=== PATIENT | male | born 1960 | race Caucasian/White ===

== ENCOUNTER 2021-01-14 07:08 | Outpatient (CLI) | payer BC, OTHER, SELFPAY ==
[2021-01-14 08:26] LABS: Hematocrit 42.1 % (42.0-52.0); Hemoglobin 13.6 g/dL (14.0-18.0); Mean Corpuscular HGB Conc 32.3 g/dl (32-36); Mean Corpuscular Hemoglobin 33.1 pg (26-34); Mean Corpuscular Volume 102.4 fl (80-100); Mean Platelet Volume 9.1 fl (7.4-10.4); Platelet Count Result 447 k/mm3 (150-375); Red Blood Count 4.11 M/mm3 (4.6-6.20); Red Cell Distribution Width 13.2 % (11.5-14.5); White Blood Count 17.6 K/mm3 (4.5-10.0)
[2021-01-14 08:51] LABS: Add Urine Microscopic? YES; Appearance Urine Clear (Clear); Bilirubin Urine Negative (Negative); Blood Urine Negative (Negative); Color Urine Yellow (Yellow); Glucose Urine UA Negative (Negative); Ketones Urine Negative (Negative); Leukocyte Esterase Ur Negative LEU/UL (Negative); Mucus Urine Rare /lpf; Nitrate Urine Negative (Negative); Protein Urine 1+ mg/dL (Negative); RBC Urine 0-2 /hpf (0-2); Specific Grav Ur 1.023 (1.001-1.035); Squamous Epithelial Cell Urine Few /hpf (Few); WBC Urine 0-3 /hpf
[2021-01-14 09:06] LABS: Vitamin D 25 Hydroxy 16.2 ng/mL
[2021-01-14 10:24] LABS: Alanine Aminotransferase 22 U/L (4-50); Albumin Level 3.8 g/dL (3.5-5.1); Alkaline Phosphatase 93 U/L (38-126); Anion Gap 11 mmol/L (8-16); Aspartate Amino Transferase 27 U/L (17-59); Bilirubin,Total 1.4 mg/dL (0.2-1.3); Blood Urea Nitrogen 12 mg/dL (9-20); Calcium 9.5 mg/dL (8.4-10.2); Carbon Dioxide 24 mmol/L (22-30); Chloride 102 mmol/L (98-107); Cholesterol 144 mg/dL (0-200); Estimated Glomerular Filt Rate > 60; Glucose 102 mg/dL (65-110); HDL Direct 58 mg/dL; Magnesium 1.8 mg/dL (1.6-2.3); Potassium 4.8 mmol/L (3.4-5.0); Sodium 137 mmol/L (137-145); Triglycerides 50 mg/dL (<150)
[2021-01-14 10:44] LABS: LDL Cholesterol Direct 73 mg/dL
[2021-01-16 18:18] LABS: Hemoglobin A1C 5.5 % (<5.7)
[2021-01-16 20:10] LABS: Prostate Specific Antigen 0.8 ng/mL (< OR = 4.0)
[2021-01-16 20:49] LABS: Folic Acid 4.6 ng/mL (2.76->20)
== END 2021-01-14 07:09 | disposition home or self-care (01) ==
PROVIDERS: PCP Family Medicine; Visit Provider Family Medicine
DX: Z00.00 Encounter for general adult medical examination without abnormal findings (principal); R14.0 Abdominal distension (gaseous); R63.4 Abnormal weight loss
CPT/HCPCS: 36415; 80053; 80061; 81001; 82306; 82607; 82746; 83036; 83735; 84153; 84443; 85027

== ENCOUNTER → 2021-01-23 15:52 | Outpatient (CLI) | payer BC, SELFPAY ==
--- NOTE | ~2021-01-23 | CT_ITS ---
EXAMINATION:CT lung screening DATE: 01/23/2021 16:07 INDICATION: Personal history of tobacco dependence. Current smoker with 45 pack year history. TECHNIQUE: Computed tomography (CT) of the chest was performed without intravenous contrast. Automate d exposure control and iterative reconstruction technique were employed. The dose-length product (DLP ) was 157.14 mGy-cm. COMPARISON: None. FINDINGS: There is mild emphysema. Calcified bilateral lung nodules and calcified mediastinal lymph n odes are consistent with old granulomatous disease. There is a small loculated right pleural effusion . There are peripheral airspace opacities in right lung lower lobe. There is an ill-defined 4 x 3 cm mass with cavitation in right lower lobe. The heart size is normal. There are coronary artery calcifi cations. No pericardial effusion. There are mildly enlarged noncalcified right hilar and mediastinal lymph nodes. For example, a right paratracheal node measures 14 x 12 mm. There are 3 subcutaneous mas ses in the posterior thorax measuring up to 4.1 cm, likely sebaceous cysts. There is an old healed le ft rib fracture. There is mild thoracic spondylosis. There is mild chronic height loss of multiple ve rtebral bodies. IMPRESSION: 1. Lung-RADS category 4B: Very suspicious. Ultrasound-guided right-sided thoracentesis is recommended . Reviewed, dictated and finalized at location A. IMPRESSION: 1. Lung-RADS category 4B: Very suspicious. Ultrasound-guided right-sided thorac entesis is recommended.
== END ==
PROVIDERS: PCP Family Medicine; Visit Provider Family Medicine
DX: Z12.2 Encounter for screening for malignant neoplasm of respiratory organs (principal); Z87.891 Personal history of nicotine dependence; R91.8 Other nonspecific abnormal finding of lung field
CPT/HCPCS: 71271

== ENCOUNTER 2021-02-09 08:31 | Outpatient (CLI) | payer BC, OTHER, SELFPAY ==
[2021-02-08 09:33] VITALS: BMI 25.0
[2021-02-09] VITALS (9 sets, daily range): BP systolic 133–158; BP diastolic 73–90; PULSE 65–84; RESP 12–20; O2SAT 97–98
--- NOTE | ~2021-02-09 | XR_ITS ---
EXAMINATION: [id number] DATE: 02/09/2021 10:28 INDICATION: Right pleural effusion status post thoracentesis. TECHNIQUE: A single frontal view of the chest was obtained. COMPARISON: Chest CT 01/23/2021 FINDINGS: Calcified left lung nodules are consistent with old granulomatous disease. There is a small right pleural effusion. There are airspace opacities in right lower lung zone. No pneumothorax. The heart size is normal. IMPRESSION: 1. Small right pleural effusion. 2. Airspace opacities in right lower lung zone, consistent with atelectasis versus pneumonia. Reviewed, dictated and finalized at location A. IMPRESSION: 1. Small right pleural effusion. 2. Airspace opacities in right lower lung zone, consistent with atelectasis buddy samy pneumonia.
--- NOTE | ~2021-02-09 | US_ITS ---
EXAMINATION: US thoracentesis DATE: 02/09/2021 10:40 INDICATION: pleural effusion TECHNIQUE: The procedure and its risks, benefits, and alternatives were discussed with the patient. P otential risks discussed included bleeding, infection, and pneumothorax. The patient understood the r isks and agreed to proceed. The skin was prepped and draped in sterile fashion. 1% lidocaine was used for local anesthesia. Under ultrasound guidance, a 5 Fr catheter with trochar was advanced into the right pleural effusion. Fluid was aspirated. The catheter was removed, and a dressing was applied. Th ere were no immediate complications. FINDINGS: Ultrasound images demonstrate a right pleural effusion and the catheter within the fluid. IMPRESSION: 1. Successful ultrasound-guided thoracentesis yielding 50 mL of opaque, garcia fluid. Reviewed, dictated and finalized at location A. IMPRESSION: 1. Successful ultrasound-guided thoracentesis yielding 50 mL of opaque, garcia fl uid.
[2021-02-09 08:58] LABS: Basophils Absolute Auto 0.1 K/mm3 (0.0-0.1); Basophils Percent Auto 0.3 % (0.2-1.2); Eosinophils Absolute Auto 0.2 K/mm3 (0-0.3); Eosinophils Percent Auto 1.1 % (0-4.4); Hematocrit 36.3 % (42.0-52.0); Hemoglobin 11.5 g/dL (14.0-18.0); Immature Granulocyte Absolute 0.15 K/mm3 (0.00-0.031); Lymphocytes Absolute Auto 2.59 K/mm3 (0.9-3.2); Lymphocytes Percent Auto 16.7 % (18.3-44.2); Mean Corpuscular HGB Conc 31.7 g/dl (32-36); Mean Corpuscular Hemoglobin 32.7 pg (26-34); Mean Corpuscular Volume 103.1 fl (80-100); Mean Platelet Volume 8.7 fl (7.4-10.4); Monocytes Absolute Auto 1.5 K/mm3 (0.1-0.6); Monocytes Percent Auto 9.7 % (2.6-8.5); Neutrophils Percent Auto 71.2 % (45.5-73.1); Platelet Count Result 672 k/mm3 (150-375); Red Blood Count 3.52 M/mm3 (4.6-6.20); Red Cell Distribution Width 14.3 % (11.5-14.5); White Blood Count 15.5 K/mm3 (4.5-10.0)
[2021-02-09 09:29] LABS: Prothrombin Time 13.2 Seconds (11.1-14.7)
--- NOTE | 2021-02-09 12:23 | SUR.PHASEII ---
1126 - lab called and stated that pleural fluid PH level is 7.210. dr holman aware. no orders received 1210 - dr. holman called and okayed for pt to discharge home
[2021-02-09 20:53] LABS: Appearance Pleural Fluid Turbid (Clear); Color Pleural Fluid White (Colorless); Pleural fluid source Pleural fluid
[2021-02-13 14:10] LABS: Glucose Pleural Fluid 141 mg/dL; LDH Pleural Fluid 104 U/L; Total Protein Pleural Fluid <3.0 g/dL
== END 2021-02-09 12:27 | disposition home or self-care (01) ==
PROVIDERS: Radiology Diagnostic Radiology; PCP Family Medicine; Visit Provider Internal Medicine Critical Care Medicine
DX: J90 Pleural effusion, not elsewhere classified (principal); R91.8 Other nonspecific abnormal finding of lung field
CPT/HCPCS: 32555; 36415; 82945; 83615; 83986; 84157; 85025; 85060; 85610; 87015; 87102; 87116; 87205; 87206; 88104; 88108; 88305; 89051

== ENCOUNTER 2021-02-16 09:05 | Outpatient (CLI) | payer BC, OTHER, SELFPAY ==
--- NOTE | 2021-02-16 12:38 | WPDSIXMINUTE ---
Six Minute Walk Procedure Procedure Performed Pulmonary Stress Test (6 min walk) Six Minute Walk This is a 6 minute walk test. The test was performed and interpreted in accordance with the 2014 ERS/ATS task force guidelines. Findings: The patient's resting room air oxygen saturation measured by pulse oximetry was 96% and her heart rate was 88 bpm. Patient ambulated for 427 meters and oxygen saturation remained 95 to 99%. Heart rate at the end of the study was 95 bpm. The patient did not qualify for supplemental oxygen at rest or with ambulation. There are no prior studies for comparison.
--- NOTE | 2021-02-16 12:39 | WPDPFTINT ---
PFT Procedure Performed PFT Procedure Performed Spirometry with Pre/Post Bronchodilator Plethysmography (Lung Vol) Diffusing Cap (DLCO) Flow Vol Loop PFT Interpretation This is a pulmonary function test with pre and post-bronchodilator spirometry, plethysmography and diffusing capacity. The test was performed and results interpreted in accordance with the 2019 and 2005 ATS/ERS Task Force guidelines respectively using the Global Lung Function Initiative-2012 reference equations. Patient demonstrated good effort and cooperation. Reproducibility criteria were met. The quality of the pre bronchodilator spirometry maneuver was Grade A and post bronchodilator spirometry maneuver was Grade A. Findings: Spirometry: the contour the inspiratory and expiratory flow tracing are normal. The pre bronchodilator FVC is 3.83 L, 78% predicted. The pre bronchodilator FEV1 is 2.50 L, 66% predicted. The FEV1: FVC ratio 65%. The post bronchodilator FVC is 3.58 L, representing no change. The post bronchodilator FEV1 is 2.71 L, representing an 8% increase. Plethysmography: The total lung capacity 7.79 L, 105% predicted. The functional residual capacity is 5.70 L, 146% predicted. The residual volume is 3.76 L, 158% predicted. Diffusing capacity: The absolute diffusion capacity is 16.1, 55% predicted. The diffusing capacity corrected for alveolar volume is 3.61, 88% predicted. Impression: There is a moderate obstructive abnormality without significant improvement after inhaling a single dose of albuterol. The increase in residual volume is consistent with air trapping from an obstructive abnormality. Hyperinflation is present is demonstrated by the increase in functional residual capacity is consistent with an obstructive abnormality. The absolute diffusing capacity is moderately decreased and normalizes when corrected for alveolar volume. There are no prior studies for comparison
== END 2021-02-16 09:06 | disposition home or self-care (01) ==
PROVIDERS: PCP Family Medicine; Visit Provider Internal Medicine Critical Care Medicine
DX: R06.02 Shortness of breath (principal); R94.2 Abnormal results of pulmonary function studies
CPT/HCPCS: 94060; 94618; 94726; 94729

== ENCOUNTER 2021-03-16 09:31 | Outpatient (CLI) | payer BC, OTHER, SELFPAY ==
--- NOTE | ~2021-03-16 | PE_ITS ---
EXAMINATION: PET skull to mid thigh DATE: 03/16/2021 13:31 INDICATION: Other disorder of the lung TECHNIQUE: Blood glucose level was 92 mg/dL. 9.172 mCi of 18-fluorodeoxyglucose (18-FDG) was administ ered i.v. Low dose computed tomography (CT) images were acquired from the base of the brain to the pr oximal thighs for attenuation correction and anatomic localization. Positron emission tomography (PET ) images were acquired in the same distribution beginning 46 minutes after injection. The dose-length product (DLP) was 606.35 mGy-cm. COMPARISON: CT, 02/23/2021 FINDINGS: Head/neck: FDG activity in the oral cavity and vocal cords without suspicious CT correlate is likely physiologic. No definite abnormal FDG uptake is identified. Chest: The previously described cavitary mass of the right lower lobe is decreased in size and withou t abnormal FDG uptake. There is persistent but decreased right pleural effusion with abnormal FDG upt jonny. A loculated pleural effusion is seen posteromedially in the right lower lobe which has also decr eased in size. There is a new focal 2 cm nodule of the right middle lobe with increased FDG uptake. T here is no pneumothorax. The heart size is normal. Mild mediastinal and right hilar lymphadenopathy p ersists without abnormal FDG uptake. There are normal-sized bilateral axillary lymph nodes with low l evel FDG uptake, likely reactive. There is a 5.3 x 3.2 cm predominantly fluid attenuation lesion of t he left back projecting at the medial margin of the scapula which demonstrates moderate peripheral FD G uptake. A 3.8 x 1.7 cm fluid collection is seen to the left of midline in the mid back without FDG uptake. Abdomen/pelvis/proximal thighs: Physiologic FDG activity is present in the bowel and urinary tract. N o abnormal FDG uptake is identified. The liver, spleen, pancreas, gallbladder, and adrenal glands are normal. The kidneys are unremarkable. No pathologically enlarged abdominal or pelvic lymph nodes are identified. There is no free intraperitoneal gas or evidence of bowel obstruction. There are changes of bilateral inguinal hernia repair. Musculoskeletal: There is severe lumbar spondylosis at L5-S1. Severe cervical spondylosis is also not ed. No abnormal FDG uptake is identified. IMPRESSION: 1. Right lung findings likely reflecting infection/inflammation. Follow-up CT of the chest in three [facility] is recommended. 2. Indeterminate subcutaneous lesion of the left upper back near the scapula. Finding could reflect a n infected sebaceous cyst however associated FDG uptake is somewhat uncharacteristic. Recommend clini elizabeth correlation. 3. Mild mediastinal, right hilar, and bilateral axillary lymphadenopathy, likely reactive. Reviewed, dictated and finalized at location A. IMPRESSION: 1. Right lung findings likely reflecting infection/inflammation. Follow-up CT o f the chest in three months is recommended. 2. Indeterminate subcutaneous lesion of the left upper back near the scapula. F inding could reflect an infected sebaceous cyst however associated FDG uptake i s somewhat uncharacteristic. Recommend clinical correlation. 3. Mild mediastinal, right hilar, and bilateral axillary lymphadenopathy, likel y reactive.
[2021-03-16 09:50] LABS: Glucose Point of Care 92 mg/dl (65-105)
== END 2021-03-16 09:32 | disposition home or self-care (01) ==
PROVIDERS: PCP Family Medicine; Visit Provider Internal Medicine Critical Care Medicine
DX: J98.4 Other disorders of lung (principal); R91.8 Other nonspecific abnormal finding of lung field; R59.0 Localized enlarged lymph nodes; L98.9 Disorder of the skin and subcutaneous tissue, unspecified
CPT/HCPCS: 78815; A9552

== ENCOUNTER 2024-07-08 01:06 | Day surgery (SDC) | payer BC, SELFPAY ==
[2024-06-25 10:12] VITALS: BP 176/93; PULSE 76; RESP 16; TEMP 37.1; O2SAT 96; BMI 30.2
--- NOTE | 2024-06-25 10:27 | PC.NURSE ---
Report to the Outpatient Waiting Room, entrance under the green pavilion located off [facility], at time ___6:00AM____ on date ___07/08/24____. Planned Procedure Time: ___7:30AM .? Time changes happen often and if your time is changed the preop area will call you the afternoon before. - You and your visitor will be asked to self-screen and do not enter if you have any COVID symptoms. Please call surgeon if you need to reschedule. - A mask is optional within the hospital at this time. Patients may have clear liquids (water, carbonated beverages, clear teas, apple juice) until 3 hours prior to surgery (4:30AM) with a maximum of 20 ounces. - No food from midnight until time of surgery and no smoking. This includes no chewing gum, candy or mints. Take only the following medications with a SIP of water on the morning of surgery: ____NONE DO NOT STOP ANY OF YOUR OTHER PRESCRIPTION MEDICATIONS PRIOR TO SURGERY EXCEPT THE FOLLOWING Medications to discontinue per physician ____HOLD DICLOFENAC PER DR WILSON HOLD ALL VITAMINS/SUPPLEMENTS 3 DAYS PER ANEESTHESIA- LAST DOSE 07/04/24 Please no make-up, nail macanese, hairspray, perfume, deodorant, or body powder the day of surgery.? No jewelry (including any body piercings) or valuables the day of surgery, leave them at home.? Please take a shower or bath the night before, or the morning of, surgery with an antibacterial soap.? Wear comfortable, loose fitting clothing.? Children are encouraged to wear pajamas. - Jewelry must be removed prior to entering the operating room.? Rings and piercings that are not removed may be cut off. - The hospital will not accept responsibility for valuables.? - Please leave all valuables, including medications, at home the day of surgery. If you are going home after surgery, a licensed otr refrigerated cdl truck driver must drive you home.? - NO public transportation without another adult if you receive anesthesia. - We recommend that an adult stay with you for 24 hours following discharge. - We also recommend that you do not drive, make important decision, drink alcoholic beverages, or take any drugs that were not prescribed by your health care provider for at least 24 hours after your discharge time. Follow any additional instructions given to you from your surgeon. Telephone instructions given to ____PATIENT and asked if any additional questions and then verbalized understanding. Patient advised to call surgeon office or pre surgery nurse liaison [phone] if any additional questions.
--- NOTE | 2024-07-07 09:26 | P.HP_ITS ---
H&P: HPI History of Present Illness Date/Time: 07/07/24 09:26 Chief Complaint: Patient has hip pain right. He has severe osteoarthritis and hkoh-bc-wccg changes of the right hip. He has failed conservative treatment like to consider hip replacement surgery on the right. Review of Systems Musculoskeletal: Musculoskeletal: Reports myalgias, Reports arthralgias, Reports joint swelling and Reports stiffness Neurologic: Reports abnormal gait [facility] Surgical History Surgical History H/O hernia repair Social History Social History Social History: Tobacco use for years, quit January 2021 Smoking packs per day: 1 Smoking cigarettes per day: 20.0 Years smoked: 35 Smoking pack-years: 35.00 Smoking status: Former smoker Tobacco type: cigarettes Smoking end date: 12/15/21 Alcohol intake: current Drinks per week: 6 Substance use: never Do You Feel Safe in your Home?: Yes Lack of Transportation: No Lack of Food: Never True Current Housing: I Have Housing Concerned About Future Housing: No Difficulty Paying Gas/Electric Bills: No Difficulty Paying for Meds: No Currently Unemployed: No Education: Trade/Vocational Certificate Difficulty w/ Childcare or Family Care: No Living arrangements: with family Additional living arrangements comments: Spiritual care concerns: No Meds Home Medications and Allergies Home Medications ?Medication ?Instructions ?Recorded ?Confirmed ?Type super Beets 1 cap PO DAILY 04/09/24 06/25/24 History diclofenac sodium 75 mg See Rx Instructions .Route 04/10/24 06/25/24 Rx tablet,delayed release .COMPLEX #60 tabs glucosamine-chondroitin 250 mg-200 1 tablet PO ONCE 06/25/24 06/25/24 History mg tablet (Osteo Bi-Flex) Allergies Allergy/AdvReac Type Severity Reaction Status Date / Time No Known Allergies Allergy Mild Verified 06/25/24 10:07 Exam Narrative: Patient has very limited motion of his right hip. He has internal rotation 0 external rotation 20 positive Stinchfield test pain to palpation manipulation. Neurologically he is intact. He walks with an antalgic gait. Eyes: General: appearance normal, both eyes and all related structures Neck: Neck: supple Resp: Effort & Inspection: normal respiratory effort Cardio: Rate: regular rate Rhythm: regular rhythm Radiology Reports: Comments: Results of Diagnostic Exam Order: 04/09/24 07:11 XR hip RT 2V w AP pelvis Routine Interpretation: AP lateral right hip of the pelvis she demonstrates [id number] change on the right hip. No fracture, lesions, or masses are appreciated. Hip/Pelvis X-Ray 04/09/24 Orthopedics Result Report 04/09/24 Assessment and Plan Assessment and plan (1) Osteoarthritis of right hip: Code(s): M16.11 - Unilateral primary osteoarthritis, right hip Status: Acute Assessment and Plan: Patient has osteoarthritis of his right hip. He has hxhd-wh-vrhp changes spurring and sclerosis. He has failed conservative treatment. He would like to proceed with hip replacement surgery. I discussed risks, benefits, limitations, and alternatives the patient in detail. He understands and agrees would like to proceed. Will proceed with total hip arthroplasty on the right per his request.
[2024-07-08] VITALS (18 sets, daily range): BP systolic 142–210; BP diastolic 61–118; PULSE 58–83; RESP 12–22; TEMP 35.9–37.1; O2SAT 95–100
--- NOTE | ~2024-07-08 | XR_ITS ---
EXAMINATION: XR surgery orthopedic DATE: 07/08/2024 09:49 INDICATION: Right hip arthroplasty. TECHNIQUE: 2 intraoperative views of right hip were obtained. COMPARISON: Right hip radiographs 04/09/2024 FINDINGS: The first image demonstrates a right acetabular cup in expected position and a broach in th e proximal right femur. The second image demonstrates a total right hip arthroplasty in near-anatomic alignment. No fracture. IMPRESSION: 1. Total right hip arthroplasty in near-anatomic alignment. Reviewed, dictated and finalized at location B. [facility] ACCORDION
[2024-07-08] MEDS: ACETAMINOPHEN 500 MG TABLET 1000 MG PO (06:45)
[2024-07-08] MEDS: TRANEXAMIC ACID 1,000MG/ISO100 1,000 MG/100 ML BAG 200 MG IVPB (06:45)
[2024-07-08] MEDS: VANCOMYCIN 1,500 MG/NS 500 ML 1,500 MG/500 ML BAG 250 MG IVPB (06:45)
[2024-07-08] MEDS: LACTATED RINGERS 1,000 ML 30 ML IV CONT ×2 (06:45→10:37)
--- NOTE | 2024-07-08 06:47 | WPDHPUPDATE1 ---
History and Physical Update Update Date/Time: 07/08/24 06:47 History and Physical has been reviewed, including an updated exam of the patient. There are NO changes in the patient's condition. Risks, benefits, and alternatives have been discussed and questions answered. Patient agrees to proceed with procedure.
--- NOTE | 2024-07-08 06:51 | P.PNAN_ITS ---
Anes - Initial Pre Proc Eval Procedure: Operation Date: 07/08/24 07:30 Proposed Procedures p Right Total Hip Arthroplasty - Edmundo Mitchell MD Date/Time: 07/08/24 06:51 Surgeon: Edmundo Mitchell MD Pre Op Diagnosis: oa right hip Patient Data Age: 63 Gender: M Height: 1.79 m Weight: 97.1 kg Last Vital Signs Temp 37.1 C 06/25/24 10:12 Pulse 76 06/25/24 10:12 Resp 16 06/25/24 10:12 BP 176/93 H 06/25/24 10:12 Pulse Ox 96 06/25/24 10:12 O2 Del Method Room Air 06/25/24 10:12 Allergies Allergy/AdvReac Type Severity Reaction Status Date / Time No Known Allergies Allergy Mild Verified 06/25/24 10:07 Home Medications ?Medication ?Instructions ?Recorded ?Confirmed ?Type super Beets 1 cap PO DAILY 04/09/24 06/25/24 History diclofenac sodium 75 mg See Rx Instructions .Route 04/10/24 06/25/24 Rx tablet,delayed release .COMPLEX #60 tabs glucosamine-chondroitin 250 mg-200 1 tablet PO ONCE 06/25/24 06/25/24 History mg tablet (Osteo Bi-Flex) Results Review: All pre-operative results and documents have been reviewed as part of the pre- operative evaluation. [facility] Past Medical History Medical History (Updated 07/08/24 @ 06:52 by Hank Bender DO) Hypertension COPD (chronic obstructive pulmonary disease) denies Surgical History Surgical History H/O hernia repair Social History Social History Social History: Tobacco use for years, quit January 2021 Smoking packs per day: 1 Smoking cigarettes per day: 20.0 Years smoked: 45 Smoking pack-years: 45.00 Smoking status: Former smoker Alcohol intake: current Substance use: never Do You Feel Safe in your Home?: Yes Lack of Transportation: No Lack of Food: Never True Current Housing: I Have Housing Concerned About Future Housing: No Difficulty Paying Gas/Electric Bills: No Difficulty Paying for Meds: No Currently Unemployed: No Education: Trade/Vocational Certificate Difficulty w/ Childcare or Family Care: No Anes - Eval Final PreProcedure Day of Procedure 07/08/24 06:51 Results Review: All pre-operative results and documents have been reviewed as part of the pre- operative evaluation. Informed Consent: The patient's anesthetic plan and its attendant risks and benefits were discussed with the patient/family/POA. Questions were solicited and answers provided to the satisfaction of the patient/family/POA.
--- NOTE | 2024-07-08 07:02 | WPDANESEPPF ---
Anes - Initial Pre Proc Eval Procedure: Operation Date: 07/08/24 07:30 Proposed Procedures p Right Total Hip Arthroplasty - Edmundo Mitchell MD Date/Time: 07/08/24 07:02 Surgeon: Edmundo Mitchell MD Pre Op Diagnosis: oa right hip Patient Data Age: 63 Gender: M Height: 1.79 m Weight: 98.8 kg Last Vital Signs Temp 96.7 F L 07/08/24 06:30 Pulse 77 07/08/24 06:30 Resp 14 07/08/24 06:30 BP 173/90 H 07/08/24 06:30 Pulse Ox 98 07/08/24 06:30 O2 Del Method Room Air 07/08/24 06:30 Allergies Allergy/AdvReac Type Severity Reaction Status Date / Time No Known Allergies Allergy Mild Verified 07/08/24 07:01 Home Medications ?Medication ?Instructions ?Recorded ?Confirmed ?Type super Beets 1 cap PO DAILY 04/09/24 07/08/24 History diclofenac sodium 75 mg See Rx Instructions .Route 04/10/24 07/08/24 Rx tablet,delayed release .COMPLEX #60 tabs glucosamine-chondroitin 250 mg-200 1 tablet PO ONCE 06/25/24 07/08/24 History mg tablet (Osteo Bi-Flex) Patient hx anesthesia problems: none Family hx anesthesia problems: none Results Review: All pre-operative results and documents have been reviewed as part of the pre-operative evaluation. [facility] Past Medical History Medical History Hypertension COPD (chronic obstructive pulmonary disease) denies Surgical History Surgical History H/O hernia repair Social History Social History Social History: Tobacco use for years, quit January 2021 Smoking packs per day: 1 Smoking cigarettes per day: 20.0 Years smoked: 45 Smoking pack-years: 45.00 Smoking status: Former smoker Alcohol intake: current Substance use: never Do You Feel Safe in your Home?: Yes Lack of Transportation: No Lack of Food: Never True Current Housing: I Have Housing Concerned About Future Housing: No Difficulty Paying Gas/Electric Bills: No Difficulty Paying for Meds: No Currently Unemployed: No Education: Trade/Vocational Certificate Difficulty w/ Childcare or Family Care: No Anes - Eval Final PreProcedure Day of Procedure 07/08/24 07:02 Patient weight: overweight Heart: regular rate and rhythm Lungs: clear to auscultation Airway: Mallampati scale and special considerations (Upper edentulous, lower aspect w few teeth in the front. ) Neurological: alert and oriented Last oral intake: >/= 8 hours ASA classification: III Emergent: no Anesthetic plan: proceed Anesthesia type and monitoring: general ETT and standard monitoring Results Review: All pre-operative results and documents have been reviewed as part of the pre-operative evaluation. HTN, ex smoker, 40+ pack years, quit approx 2021. Pt w clearance from PCP for ortho surgery. Informed Consent: The patient's anesthetic plan and its attendant risks and benefits were discussed with the patient/family/POA. Questions were solicited and answers provided to the satisfaction of the patient/family/POA.
[2024-07-08] MEDS: ceFAZolin 2 GM/D5W 50 ML 2 GM/50 ML BAG IVPB ×3 (07:40→22:17)
[2024-07-08] MEDS: BUPIVACAINE/EPINEPHRINE 0.5% 30 ML VIAL INFILTRATE (08:29)
--- NOTE | 2024-07-08 09:46 | W.PM.PROC2 ---
Procedure Note - Detailed Date of Procedure 07/08/24 Pre-op Diagnosis Osteoarthritis RIGHT hip Post-op Diagnosis Same Procedure Performed RIGHT total hip arthroplasty Surgeon Edmundo Mitchell MD Transitional Studies Instructor Bartolo Anesthesia General Indications Pain and Arthritis Description of Procedure Patient was brought to the operating room #7, and an anesthetic was administered. The patient was placed with the operative Hip up and sterilely prepped and draped in the usual manner. A longitudinal incision was performed. Dissection was carried down to the fascia. A Hardinge type approach was used and the femoral head was dislocated anteriorly. The Femoral head was removed a finger breath above the lesser trochanter. The acetabulum was serially reamed to accept a 54 component. This was impacted into place and secured with 2 25mm screws. A high wall liner was placed. The femur was reamed and broached to accept a 13 component which was impacted into place. A minus 6 head and neck were placed and the hip was put through full range of motion. The hip was noted to be stable. The wounds were then closed in a layered fashion using #5 ethibond, 2 vicryl, 2-0 vicryl and magaly. Patient left the operating room in satisfactory condition. Implants [employer] Taperloc hip Vadim Multihole cup Estimated Blood Loss 500 Drains No Packing No Pathology None sent Complications No immediate complications Condition Stable Disposition PACU [facility] Billing Surgery - Charge Forward: Surgery Billing ([id number] BETHANY)
[2024-07-08] MEDS: oxyCODONE HCL (*CRX) 5 MG TAB IR PO (13:37)
[2024-07-08] MEDS: fentaNYL CITRATE INJ (*CRX) 100 MCG/2 ML VIAL 25 MCG IV PUSH (13:37)
--- NOTE | 2024-07-08 14:36 | SUR.PHASEI ---
pt was held in preop area until room was available. pt was appropriate for floor at 1200. took pt upstairs to rm [id number] at 1430. pt was in good spirits and was present in room.
--- NOTE | 2024-07-08 14:40 | ADMGEN ---
This patient, Jerson Swain, was admitted to [facility] Surg Room 303-01. Patient/family oriented to hospital policies and general routines including ID bracelet, bed and alarms, visiting hours, pain management, procedures, bathroom and other care routines, personal items, smoking policy, room service/diet, and visiting hours. Information on how to activate the Rapid Response Team has been discussed. Patient/Family are encouraged to report perceived risks to care and to ask questions if they do not understand what they are told or what they should do.
[2024-07-08] MEDS: SODIUM CHLORIDE 0.9% IV 1,000 ML 125 ML IV CONT (15:04)
[2024-07-08] MEDS: HYDROcodone/acetaminophen (*CRX) 7.5-325 MG TABLET 1 TAB PO ×2 (15:31→21:15)
[2024-07-08] MEDS: RIVAROXABAN 10 MG TABLET PO (15:32)
[2024-07-08] MEDS: lisinopriL 20 MG TABLET PO (15:32)
--- NOTE | 2024-07-08 15:58 | PM.IMCN ---
Assessment and Plan Assessment and plan (1) Osteoarthritis of right hip: Qualifiers: Osteoarthritis type: primary Qualified Code(s): M16.11 - Unilateral primary osteoarthritis, right hip Code(s): M16.11 - Unilateral primary osteoarthritis, right hip Status: Acute Assessment and Plan: - ambulate with assistance and up to chair - apply gel pads - cardiac monitoring Q4H - use IS - neurovasc checks - see order for intervals - SCDs and MARQUES - analgesics and antiemetics p.r.n. - monitor labs in AM - CBC and BMP - bowel regimen: docusate/senna, polyethylene glycol - maintenance fluids: NS 125 mL/hr - PT/OT (2) Hypertension: Qualifiers: Hypertension type: primary hypertension Qualified Code(s): I10 - Essential (primary) hypertension Code(s): I10 - Essential (primary) hypertension Status: Acute Assessment and Plan: - chronic, currently 198/98 - continue home medications: Lisinopril 20 mg daily - hydralazine 10 mg IV p.r.n. 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 The patient presents here for surgical management of his right hip severe osteoarthritis. He reports he has had ongoing right hip pain for the past year and a half. He reports no previous injections or PT. Previously taking Tylenol for pain management without relief. Due to interference with taking the stairs/daily activities he elected to move forward with surgery. He underwent a right total hip arthroplasty on 07/08/2024 with Stephen MURDOCK. Postoperatively he reports he is feeling well. Denies postoperative nausea or vomiting. He denies recent changes to his medical history. He denies any recent changes to his medications. He does have a history of hypertension, currently on lisinopril 20 mg daily. Patient follows with Terence MURDOCK for his primary care. Preop VS: 98.8? F, HR 76, RR 16, 176/93, and 96% on room air. Preop workup: No leukocytosis, no anemia, creatinine 0.98 and GFR >60, glucose 94, A1c 5.3, and nasal MRSA negative. Review of Systems Review of Systems: All systems reviewed & are unremarkable except as noted in HPI and below PMFSH Past Medical History Medical History Former smoker Pleural effusion COPD (chronic obstructive pulmonary disease) denies Empyema of right pleural space Hypertension Surgical History Surgical History H/O hernia repair Social History Social History Social History: Tobacco use for years, quit January 2021 Smoking packs per day: 1 Smoking cigarettes per day: 20.0 Years smoked: 45 Smoking pack-years: 45.00 Smoking status: Former smoker Alcohol intake: current Drinks per week: 6 Substance use: never Do You Feel Safe in your Home?: Yes Lack of Transportation: No Lack of Food: Never True Current Housing: I Have Housing Concerned About Future Housing: No Difficulty Paying Gas/Electric Bills: No Difficulty Paying for Meds: No Currently Unemployed: No Education: Trade/Vocational Certificate Difficulty w/ Childcare or Family Care: No Living arrangements: with family Additional living arrangements comments: Spiritual care concerns: No Meds Home Medications and Allergies Home Medications ?Medication ?Instructions ?Recorded ?Confirmed ?Type super Beets 1 cap PO DAILY 04/09/24 07/08/24 History diclofenac sodium 75 mg See Rx Instructions .Route 04/10/24 07/08/24 Rx tablet,delayed release .COMPLEX #60 tabs glucosamine-chondroitin 250 mg-200 1 tablet PO ONCE 06/25/24 07/08/24 History mg tablet (Osteo Bi-Flex) lisinopril 20 mg tablet 20 mg PO DAILY hypertension 07/08/24 07/08/24 History Allergies Allergy/AdvReac Type Severity Reaction Status Date / Time No Known Allergies Allergy Mild Verified 07/08/24 07:01 Vital Signs Vital Signs - 24 hr 07/08/24 06:30 07/08/24 10:37 07/08/24 10:50 Temperature 96.7 F L 97.1 F L Pulse Rate 77 83 75 Respiratory Rate 14 17 16 Blood Pressure 173/90 H 165/83 H 163/84 H Pulse Oximetry 98 98 98 Oxygen Delivery Room Air Simple Face Mask Simple Face Mask Oxygen Flow Rate 8 8 07/08/24 11:05 07/08/24 11:20 07/08/24 11:35 Temperature Pulse Rate 73 72 66 Respiratory Rate 14 17 12 Blood Pressure 165/82 H 178/98 H 179/93 H Pulse Oximetry 100 97 96 Oxygen Delivery Simple Face Mask Room Air Room Air Oxygen Flow Rate 8 07/08/24 11:50 07/08/24 12:20 07/08/24 12:50 Temperature Pulse Rate 62 60 67 Respiratory Rate 13 14 12 Blood Pressure 183/83 H 156/81 H 161/86 H Pulse Oximetry 95 98 98 Oxygen Delivery Room Air Room Air Room Air Oxygen Flow Rate 07/08/24 13:20 07/08/24 14:00 07/08/24 14:30 Temperature 97.1 F L Pulse Rate 65 60 68 Respiratory Rate 12 12 22 H Blood Pressure 183/79 H 152/74 H 187/91 H Pulse Oximetry 100 100 100 Oxygen Delivery Room Air Room Air Oxygen Flow Rate 07/08/24 14:45 07/08/24 15:14 07/08/24 15:15 Temperature 98.1 F 98.0 F Pulse Rate 58 L 69 Respiratory Rate 20 20 Blood Pressure 186/90 H 210/118 H Pulse Oximetry 98 99 Oxygen Delivery Room Air Oxygen Flow Rate Exam Const: General: comfortable and no acute distress Other: , male, nontoxic appearance HENMT: Face/Nose/Sinus: Normal nares present Mouth: Yes moist mucous membranes Eyes: General: appearance normal, both eyes and all related structures Sclera: sclerae normal Pupils: Equal, round and reactive pupils present EOM: EOMs intact bilaterally Resp: Effort & Inspection: normal respiratory effort Auscultation: clear to auscultation bilaterally Cardio: Rate: regular rate Rhythm: regular rhythm Other: S1-S2 present without murmur, rub, ectopy GI: Other: Abdomen soft, nondistended, nontender. Normoactive bowel sounds in the right upper quadrant, normal to hypoactive bowel sounds and the left upper quadrant and bilateral lower quadrants. Skin: General skin exam: normal color and no rashes or lesions noted Other: Postsurgical incision to right hip. Dressing CDI. No drainage or bleeding noted. Neuro: Speech: normal speech Motor exam (neuro): 5/5 motor strength present throughout Sensory Exam: normal sensation Other: A&O x4 Extrem: General: normal to inspection Psych: Mental Status: mental status grossly normal Affect: Hostile affect present (Patient upset he had to wait to use the restroom at shift change) Other: Good insight and judgment. Quality VTE Prophylaxis VTE prophylaxis: mechanical ordered Hospitalist [facility] Advance Care Plan I have confirmed that the patient's Advanced Care Plan is present, code status is documented, or surrogate decision maker is listed in patient medical record.: Yes Medication Reconciliation I have utilized all available resources to obtain, update and review the patients current medications (includes all prescriptions, OTC, herbals, cannabis, and nutritional supplements).: Yes
[2024-07-09] MEDS: HYDROcodone/acetaminophen (*CRX) 7.5-325 MG TABLET 1 TAB PO ×2 (02:27→10:11)
[2024-07-09 04:00] VITALS: BP 158/65; PULSE 55; RESP 12; TEMP 36.8; O2SAT 97
[2024-07-09] MEDS: HYDROcodone/acetaminophen (*CRX) 5-325 MG TABLET 1 TAB PO (05:41)
[2024-07-09] MEDS: ceFAZolin 2 GM/D5W 50 ML 2 GM/50 ML BAG IVPB (05:41)
[2024-07-09 06:48] LABS: Basophils Percent Auto 0.1 % (0.2-1.2); Eosinophils Percent Auto 0.3 % (0-4.4); Hematocrit 35.2 % (42.0-52.0); Hemoglobin 11.5 g/dL (14.0-18.0); Immature Granulocyte Absolute 0.08 K/mm3 (0.00-0.031); Immature Granulocyte Percent A 0.8 % (0-0.5); Lymphocytes Absolute Auto 1.57 K/mm3 (0.9-3.2); Lymphocytes Percent Auto 15.1 % (18.3-44.2); Mean Corpuscular HGB Conc 32.7 g/dl (32-36); Mean Corpuscular Hemoglobin 34.8 pg (26-34); Mean Corpuscular Volume 106.7 fl (80-100); Mean Platelet Volume 9.3 fl (7.4-10.4); Monocytes Absolute Auto 1.5 K/mm3 (0.1-0.6); Monocytes Percent Auto 14.7 % (2.6-8.5); Neutrophils Absolute Auto 7.2 K/mm3 (1.3-6.7); Platelet Count Result 235 k/mm3 (150-375); Red Cell Distribution Width 12.9 % (11.5-14.5); White Blood Count 10.4 K/mm3 (4.5-10.0)
[2024-07-09 06:54] LABS: Anion Gap 13 mmol/L (4-12); Blood Urea Nitrogen 15 mg/dL (9-20); Calcium 8.3 mg/dL (8.4-10.2); Carbon Dioxide 20 mmol/L (22-30); Chloride 100 mmol/L (98-107); Estimated CRCL calculation 88 ml/min; Estimated Glomerular Filt Rate > 60; Glucose 124 mg/dL (65-110); Potassium 4.2 mmol/L (3.4-5.0); Sodium 133 mmol/L (137-145)
--- NOTE | 2024-07-09 07:04 | P.PNOP_ITS ---
Progress Note: A&P Assessment and Plan (1) History of right hip replacement: Code(s): Z96.641 - Presence of right artificial hip joint Status: Acute Assessment and Plan: Patient is status post total hip arthroplasty for osteoarthritis. He is following a typical course. Will ambulate today if he feels well dismiss later discussed. Subjective Subjective Date/Time Seen: 07/09/24 07:04 Post Op day: 1 Principal diagnosis: Total Hip Review of Systems Review of Systems: All systems reviewed & are unremarkable except as noted in HPI and below Exam Narrative: Wiggles toes NVI Ambulating with a walker Dressing intact Objective Data Vital Signs Vital Signs: Vital Signs - 24 hr 07/08/24 10:37 07/08/24 10:50 07/08/24 11:05 Temperature 97.1 F L Pulse Rate 83 75 73 Respiratory Rate 17 16 14 Blood Pressure 165/83 H 163/84 H 165/82 H Pulse Oximetry 98 98 100 Oxygen Delivery Simple Face Mask Simple Face Mask Simple Face Mask Oxygen Flow Rate 8 8 8 07/08/24 11:20 07/08/24 11:35 07/08/24 11:50 Temperature Pulse Rate 72 66 62 Respiratory Rate 17 12 13 Blood Pressure 178/98 H 179/93 H 183/83 H Pulse Oximetry 97 96 95 Oxygen Delivery Room Air Room Air Room Air Oxygen Flow Rate 07/08/24 12:20 07/08/24 12:50 07/08/24 13:20 Temperature Pulse Rate 60 67 65 Respiratory Rate 14 12 12 Blood Pressure 156/81 H 161/86 H 183/79 H Pulse Oximetry 98 98 100 Oxygen Delivery Room Air Room Air Room Air Oxygen Flow Rate 07/08/24 14:00 07/08/24 14:30 07/08/24 14:45 Temperature 97.1 F L 98.1 F Pulse Rate 60 68 58 L Respiratory Rate 12 22 H 20 Blood Pressure 152/74 H 187/91 H 186/90 H Pulse Oximetry 100 100 98 Oxygen Delivery Room Air Oxygen Flow Rate 07/08/24 15:14 07/08/24 15:15 07/08/24 15:55 Temperature 98.0 F Pulse Rate 69 Respiratory Rate 20 Blood Pressure 210/118 H Pulse Oximetry 99 Oxygen Delivery Room Air Room Air Oxygen Flow Rate 07/08/24 16:15 07/08/24 17:35 07/08/24 20:00 Temperature 98.2 F Pulse Rate 69 Respiratory Rate 18 Blood Pressure 198/98 H 200/102 H Pulse Oximetry 98 Oxygen Delivery Room Air Oxygen Flow Rate 07/08/24 20:00 07/08/24 23:29 07/09/24 04:00 Temperature 98.2 F 98.7 F 98.2 F Pulse Rate 76 75 55 L Respiratory Rate 13 13 12 Blood Pressure 142/61 H 176/85 H 158/65 H Pulse Oximetry 97 98 97 Oxygen Delivery Oxygen Flow Rate Intake/Output Intake/Output: Intake & Output 07/06/24 07/07/24 07/08/24 07/09/24 23:59 23:59 23:59 23:59 Intake Total 1490 600 Balance 1490 600 Meds/Results Medications: Active Medications Generic Name Dose Route Start Last Admin Trade Name Freq PRN Reason Stop Dose Admin Hydrocodone Bitart/Acetaminophen 1 tab 07/08/24 14:22 07/09/24 05:41 Hydrocodone/Acetaminophen (*Crx) 5-325 Mg Tablet PO 1 tab Q4H PRN Administration Pain Rated 4-6 Hydrocodone Bitart/Acetaminophen 1 tab 07/08/24 14:22 07/09/24 02:27 Hydrocodone/Acetaminophen (*Crx) 7.5-325 Mg Tablet PO 1 tab Q4H PRN Administration Pain Rated 7-10 Cyclobenzaprine HCl 10 mg 07/08/24 14:22 Cyclobenzaprine Hcl 10 Mg Tablet PO Q8H PRN Muscle Spasm Hydralazine HCl 10 mg 07/08/24 19:25 Hydralazine Hcl 20 Mg/Ml Vial IV PUSH Q8H PRN BP greater than 180/90 Hydromorphone HCl 1 mg 07/08/24 14:22 Hydromorphone Hcl Inj (*Crx) 1 Mg/Ml Syr IV PUSH Q2H PRN Breakthrough Pain Rated 7-10 or NPO Hydromorphone HCl 0.5 mg 07/08/24 14:22 Hydromorphone Hcl Inj (*Crx) 1 Mg/Ml Syr IV PUSH Q2H PRN Breakthrough Pain Rated 4-6 or NPO Cefazolin Sodium 2 gm in 50 mls @ 100 mls/hr 07/08/24 15:00 07/09/24 05:41 Ancef 2 Gm/D5w 50 Ml IVPB 07/09/24 07:29 100 mls/hr Q8H PEDRO LUIS Administration Lisinopril 20 mg 07/08/24 15:25 07/08/24 15:32 Lisinopril 20 Mg Tablet PO 20 mg QAM PEDRO LUIS Administration Naloxone HCl 0.1 mg 07/08/24 14:22 Naloxone Hcl 0.4 Mg/Ml Vial IV PUSH Q2M PRN Opiate Reversal Ondansetron HCl 4 mg 07/08/24 14:22 Ondansetron Inj 4 Mg/2 Ml Vial IV PUSH Q4H PRN Nausea And Vomiting Polyethylene Glycol 17 gm 07/09/24 09:00 Polyethylene Glycol 3350 17 Gm Powd.Pack PO QAM [facility] Rivaroxaban 10 mg 07/08/24 17:00 07/08/24 15:32 Rivaroxaban 10 Mg Tablet PO 10 mg DAILY@1700 [facility] Administration Senna/Docusate Sodium 2 tab 07/08/24 17:00 07/08/24 15:32 Senna/Docusate Sodium Tablet PO Not Given BID [facility] Tramadol HCl 50 mg 07/08/24 14:22 Tramadol Hcl (*Crx) 50 Mg Tablet PO Q4H PRN Pain Rated 1-3 Radiology Results: ITS Impressions Intraoperative X-Ray 07/08/24 09:52 IMPRESSION: 1. Total right hip arthroplasty in near-anatomic alignment. Labs Labs: Laboratory Results - last 24 hr 07/09/24 05:54 Sodium 133 L Potassium 4.2 Chloride 100 Carbon Dioxide 20 L Anion Gap 13 H BUN 15 Creatinine 0.88 Estim Creat Clear Calc 88 Estimated GFR > 60 Glucose 124 H Calcium 8.3 L
--- NOTE | 2024-07-09 07:06 | PM.DS ---
DS: Admitting Diagnosis Discharge Date 07/09/2024 Admitting Diagnosis Osteoarthritis right hip DS: Discharge Diagnosis Discharge Diagnosis (1) History of right hip replacement: Code(s): Z96.641 - Presence of right artificial hip joint Status: Acute Assessment and Plan: Patient underwent total hip arthroplasty for osteoarthritis. He has done well postop was ambulating. Dismissed today he has any changes problems he will call follow-up 2 weeks. DS: Summary Hospital Course Hospital Course: Patient underwent total hip arthroplasty for osteoarthritis in the right hip. He has progressed reasonably well. Can be dismissed home today. Dismissed medication [place] Xarelto and doxycycline. He is touch weight-bearing on his hip. Follow-up 2 weeks. If he has any changes or problems he will call. He should use a walker in the meantime discussed. Status at Discharge Functional status at discharge: uses cane/walker Time Spent with Patient Time attestation: Total time spent providing and/or coordinating discharge services: Exam Narrative: NVI Ambulates with a walker Up tid Dressing intact DS: Data Data Completed and Pending Labs on day of discharge: Labs from last 24 hours 07/09/24 05:54 WBC Pending RBC Pending Hgb Pending Hct Pending MCV Pending MCH Pending MCHC Pending RDW Pending Plt Count Pending MPV Pending Immature Gran % (Auto) Pending Neut % (Auto) Pending Lymph % (Auto) Pending Blanco % (Auto) Pending Eos % (Auto) Pending Baso % (Auto) Pending Lymph # (Auto) Pending [place] # (Auto) Pending Eos # (Auto) Pending Baso # (Auto) Pending Abs Immat Gran (auto) Pending Absolute Neuts (auto) Pending Absolute Nucleated RBC Pending Nucleated RBC % Pending Sodium 133 L Potassium 4.2 Chloride 100 Carbon Dioxide 20 L Anion Gap 13 H BUN 15 Creatinine 0.88 Estim Creat Clear Calc 88 Estimated GFR > 60 Glucose 124 H Calcium 8.3 L Discharge Plan Discharge Patient Disposition: Home, Self-Care Discharge Instructions: Dr. Edmundo Mitchell M.D [address] [place] [id number] POST-OPERATIVE DISCHARGE INSTRUCTIONS TOTAL HIP ARTHROPLASTY 1. Move toes/feet up and down every hour while awake. 2. Be up walking every hour while awake. 3. Use walker time study technologist if instructed to use walker time study technologist.When you are allowed to use the cane, use the cane in the opposite hand. 4. When resting, do not rest in the chair. Rather, lie on your back, with back flat, and the leg elevated above heart to minimize swelling. You may put a pillow under your head. Do not rest in a chair. Resting in the chair results in swelling in the leg. Significant swelling could indicate a blood clot and if this occurs, call the office (or go to the ER) to have a venous ultrasound performed. Its ok to sit in the chair to eat and use the toilet and to receive a guest but sitting in a chair will cause your leg to swell. so try to minimize sitting in a chair. 5. Wound Care: Apply a folded 4x4 sponge to incision and hold with crossing strips of 1 inch Transpore tape. 6. Follow weight bearing status as instructed: 7. May shower. Remove dressing before shower and reapply dressing after shower. Patient Language: Macedonian Stand Alone Forms: General Discharge Instructions Follow-up/Referrals: Edmundo Mitchell MD [Physician] - Discharge Medications: New doxycycline hyclate 100 mg tablet 100 mg PO DAILY Qty: 10 0RF hydrocodone-acetaminophen 7.5-325 mg tablet 1 tablet PO Q4H PRN (Reason: pain) Qty: 40 0RF Xarelto 10 mg tablet 10 mg PO DAILY Qty: 20 0RF Continued super Beets 1 cap PO DAILY glucosamine-chondroitin [Osteo Bi-Flex] 250-200 mg tablet 1 tablet PO ONCE Rx Instructions: give after food/meal lisinopril 20 mg tablet 20 mg PO DAILY diclofenac sodium 75 mg tablet,delayed release (DR/EC) See Rx Instructions .ROUTE .COMPLEX Qty: 60 1RF Dose Instruction: TAKE 1 TABLET BY MOUTH TWICE DAILY Rx Instructions: TAKE 1 TABLET BY MOUTH TWICE DAILY
[2024-07-09 07:19] LABS: Anisocytosis 1+; Macrocytosis 1+ (NORMAL); Platelet Estimate Adequate (Adequate); Schistocytes None Seen
[2024-07-09 08:00] VITALS: BP 167/84; PULSE 69; RESP 16; TEMP 36.2; O2SAT 99
[2024-07-09] MEDS: lisinopriL 20 MG TABLET PO (08:38)
--- OUTSIDE RECORDS SUMMARY | 2024-07-09 21:01 | XMS_ITS | Clinical Summary ---
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 Referring provider: Dr. Celine Eli Mr. Jerson Ellington is a 60-year-old with an empyema. He initially presented with some increase pain in his rib area. He saw his doctor. He does report in unintentional weight loss of 70-80 lb over the last 10 months. On 01/23/2021 the patient underwent a chest CT which showed a small loculated right pleural effusion. There were peripheral airspace opacities in the right lower lobe. There was an ill-defined mass in the right lower lobe. This measured 4 x 3 cm and had cavitation. There were mildly enlarged noncalcified right hilar and mediastinal lymph nodes. For reference a right paratracheal lymph node measured 14 x 12 mm. There are 3 subcutaneous masses in the posterior thorax measuring 4.1 cm, likely sebaceous cysts. On 02/09/2021, the patient subsequently underwent a thoracentesis in which a small amount of fluid was removed and its features were consistent with an empyema. On 03/16/2021 the patient underwent a PET scan which showed a decrease in size of the right lower lobe lung mass without any abnormal FDG uptake. There is persistent but decreased right pleural effusion was abnormal FDG uptake. A loculated pleural effusion is seen posterior medially in the right lower lobe has also decreased in size. There is a new focal 2 cm nodule in the right middle lobe with increased FDG uptake. There is mild mediastinal and right hilar lymphadenopathy which persist without any abnormal FDG uptake. There is a 5.3 x 3.2 cm fluid attenuation lesion of the left back projecting at the medial margin of the scapula which demonstrates moderate uptake. There is a 3.8 x 1.7 cm fluid collection seen to the left of the midline in the back without any FDG uptake. On 02/16/2021 the patient underwent a pulmonary function test which showed an FEV1 of 66% of predicted and a DLCO of 55% of predicted. Patient is a current smoker with a 45 pack year smoking history. Patient presents today for further surgical evaluation. Review of systems: Respiratory: Positive for coughing up phlegm. All other systems were reviewed and are negative. No known active problems Medical History Medical History Date Comments Empyema (CMS/HCC) (HCC) Family History Medical History Relation Name Comments No Known Problems Father No Known Problems Mother Relation Name Status Comments Father Mother Social History Tobacco Use Types Packs/Day Years Used Date Smoking Tobacco: Former Cigarettes 1 40 Smokeless Tobacco: Never Personal Safety Answer Date Recorded Getting School Help Needed Not on file 08/31 Sex and Gender Information Value Date Recorded Sex Assigned at Not on file Legal Sex Male 12:06 PM CDT Gender Identity Not on file Sexual Orientation Not on file 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 Not on file Not on file Obstetrics History Last Filed Vital Signs Vital Sign Reading Time Taken Comments Blood Pressure 216/106 12/28/2021 12:20 PM CDT made provider aware Pulse 60 12/28/2021 12:20 PM CDT Temperature 36.2 ??C (97.1 ??F) 12/28/2021 1 2:20 PM CDT Respiratory Rate 18 12/28/2021 12:2 0 PM CDT Oxygen Saturation 98% 12/28/2021 12: 20 PM CDT room air Inhaled Oxygen Concentration - - Weight 96.6 kg (213 lb) 12/28/2021 12:2 0 PM CDT Height 182.9 cm (6') 12/28/2021 12:20 PM CDT Body Mass Index 28.89 12/28/2021 12:20 PM CDT Plan of Treatment Health Maintenance Due Date Last Done Comments Colon Cancer Screening-Colonoscopy 1960 Depression Screening 1960 Hepatitis C Screening 1960 Prostate Cancer Screening-PSA 1960 DTaP/Tdap/Td Vaccine (1 - Tdap) 12/21/1970 Hepatitis B Screening 12/21/1977 Regular Well Visit/Exam 18-64 12/21/1977 Zoster Vaccine (1 of 2) 12/21/2009 Covid-19 Vaccine (3 2023-2 5 season) 2024 09/12/2020, 08/15/2020 Influenza Vaccine (#1) 2024 5, 03/30/2014 Pneumococcal vaccine <65 Aged Out No longer eligible based on patient's age to complete this topic Insurance [employer] [place] [id number] SP[employer]Code OOS [employer] Care Teams Broom Worker Relationship Specialty Start Date End Date Nathaniel Pratt MD [address] [place] [address] [place] [address] PCP - General Family Medicine 03/14/21
--- OUTSIDE RECORDS SUMMARY | 2024-07-09 21:01 | XMS_ITS | Data Portability ---
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 PET CT: 03/16/21. LDCT chest: 01/23/21. Annual labs: 01/14/21. D/w pt in detail about his conditions, recent labs & imagines and further plan of care. All questions answered for the pt. Pt declined for any imagine for his head due to this fall. Educated pt about alarming symptoms to monitor at home. Meds as directed. Increase Lisinopril as directed. Ice pack as directed. Diet and exercise explained in detail. BP diary education given and call us if any concerns. Pt has quitted smoking and is doing well with it. Cont f/u with CT surgeon at [facility] as per schedule. Cont f/u with Pulmo as per schedule. Cont f/u with Ortho as per schedule. HM: Colonoscopy - 11 yrs ago, normal as per pt. Referred to GI in the past. Pt declined. Cologuard 02/26/22, neg. US AAA - Never. At 64 yrs. Flu - 03/08. Tdap - 02/21/22. Pneumo - Never. Pt declined. Shingrix - At pharmacy/HD. F/u in 2-3 months. Lipids before next visit. Annual labs in 02/06. [email or web address] Not available 08/16/2022 15:53:25 04/30/2024 04/30/2024 D/w pt about his findings and further plan of care. Pt declined for any dose change of his Lisinopril. All pre-op testing as per surgeon (labs, EKG & cxr). BP diary education given. Cont f/u with Pulmo at [place] as per schedule. Cont f/u with Ortho at [place] as per schedule. F/u in few weeks/next month for Annual exam. Not available 04/30/2024 16:45:15 Plan of Treatment Reminders Order Date Submit Date Provider Last Modified By Organization Details Last Modified Time Details Appointments None recorded. Lab None recorded. Referral None recorded. Procedures None recorded. Surgeries None recorded. Imaging None recorded. Medication Orders lisinopril 30 mg tablet 2022 023 [email or web address] [id number], [address], [place], [id number], 16:13:12 Patient TargetsNo targets recorded. Patient Instructions Encounter Date Encounter Id Patient Instructions Last Modified By Organization Details Last Modified Time 04/30/2024 [id number] high blood pressure: care instructions [email or web address] Not available 04/30/2024 16:26:11 high cholesterol : care instructions [email or web address] Not available 04/30/2024 16:26:11 Reason for Referral None Reported. Results Created Date Observation Date Name Description Value Unit Range Abnormal Flag Note LastModifiedBy Organization Detail LastModifiedTime 02/10/20 22 02/12/2022 CBC/C OMPLE TE BLD COUNT W/DIF F mean red cell volume 108.5 fL 80.0-9 7.0 high Not Available [facility] (Lab) [address] [place], [address], 02/12/2022 10:57:06 02/10/20 22 02/12/2022 CBC/C OMPLE TE BLD COUNT W/DIF F white blood cells 6.8 x10'3 /uL 4.2-10 .8 Not Available [facility] (Lab) [address] [place], [address], 02/12/2022 10:57:06 02/10/20 22 02/12/2022 CBC/C OMPLE TE BLD COUNT W/DIF F red blood cells 4.24 x10'6 /uL 4.10-5 .80 Not Available [facility] (Lab) [address] [place], [address], 02/12/2022 10:57:06 02/10/20 22 02/12/2022 CBC/C OMPLE TE BLD COUNT W/DIF F hemoglobin 15.0 g/dL 13.2-1 7.0 Not Available [facility] (Lab) [address] [place], [address], 02/12/2022 10:57:06 02/10/20 22 02/12/2022 CBC/C OMPLE TE BLD COUNT W/DIF F hematocrit 46.0 % 39.3-5 0.0 Not Available [facility] (Lab) [address] [place], [address], 02/12/2022 10:57:06 02/10/20 22 02/12/2022 CBC/C OMPLE TE BLD COUNT W/DIF F mean red cell hemoglobin 35.4 pg 27.0-3 3.0 high Not Available [facility] (Lab) [address] [place], [address], 02/12/2022 10:57:06 02/10/20 22 02/12/2022 CBC/C OMPLE TE BLD COUNT W/DIF F mean RBC HGB concentratio n 32.6 g/dL 31.0-3 6.0 Not Available [facility] (Lab) [address] [place], [address], 02/12/2022 10:57:06 02/10/20 22 02/12/2022 CBC/C OMPLE TE BLD COUNT W/DIF F red cell distribution width 13.8 % 11.8-1 5.5 Not Available [facility] (Lab) [address] [place], [address], 02/12/2022 10:57:06 02/10/20 22 02/12/2022 CBC/C OMPLE TE BLD COUNT W/DIF F platelets 259 x10'3 /uL 150-40 0 Not Available [facility] (Lab) [address] [place], [address], 02/12/2022 10:57:06 02/10/20 22 02/12/2022 CBC/C OMPLE TE BLD COUNT W/DIF F mean platelet volume 9.8 fL 9.0-12 .4 Not Available [facility] (Lab) [address] [place], [address], 02/12/2022 10:57:06 02/10/20 22 02/12/2022 CBC/C OMPLE TE BLD COUNT W/DIF F neutrophils 38.9 % 39.0-7 2.0 low Not Available [facility] (Lab) [address] [place], [address], 02/12/2022 10:57:06 02/10/20 22 02/12/2022 CBC/C OMPLE TE BLD COUNT W/DIF F lymphocytes 38.9 % 16.0-4 7.0 Not Available [facility] (Lab) [address] [place], [address], 02/12/2022 10:57:06 02/10/20 22 02/12/2022 CBC/C OMPLE TE BLD COUNT W/DIF F monocytes 10.7 % 5.0-12 .0 Not Available [facility] (Lab) [address] [place], [address], 02/12/2022 10:57:06 02/10/20 22 02/12/2022 CBC/C OMPLE TE BLD COUNT W/DIF F eosinophils 3.2 % 1.0-7. 0 Not Available [facility] (Lab) [address] [place], [address], 02/12/2022 10:57:06 02/10/20 22 02/12/2022 CBC/C OMPLE TE BLD COUNT W/DIF F basophils 0.7 % 0.0-2. 0 Not Available [facility] (Lab) [address] [place], [address], 02/12/2022 10:57:06 02/10/20 22 02/12/2022 CBC/C OMPLE TE BLD COUNT W/DIF F immature granulocytes 0.4 % 0.00-0 .50 Not Available [facility] (Lab) [address] [place], [address], 02/12/2022 10:57:06 02/10/20 22 02/12/2022 CBC/C OMPLE TE BLD COUNT W/DIF F neutrophils, absolute count 3.14 x10'3 /uL 1.5-8. 0 Not Available [facility] (Lab) [address] [place], [address], 02/12/2022 10:57:06 02/10/20 22 02/12/2022 CBC/C OMPLE TE BLD COUNT W/DIF F immature granulocytes ,absolute 0.03 x10'3 /uL 0.00-0 .05 Not Available [facility] (Lab) [address] [place], [address], 02/12/2022 10:57:06 02/10/20 22 02/12/2022 CBC/C OMPLE TE BLD COUNT W/DIF F nucleated red blood cells 0.0 % -0 Not Available [facility] (Lab) [address] [place], [address], 02/12/2022 10:57:06 02/10/20 22 02/12/2022 CBC/C OMPLE TE BLD COUNT W/DIF F NRBC# 0.00 x10'3 /uL Not Available [facility] (Lab) [address] [place], [address], 02/12/2022 10:57:06 02/10/20 22 02/12/2022 CBC/C OMPLE TE BLD COUNT W/DIF F macro 1+ Not Available [facility] (Lab) [address] [place], [address], 02/12/2022 10:57:06 02/10/20 22 02/09/2022 LIPID PANEL cholesterol 208 mg/dL 140-19 9 high NIH CAROLEE NSUS RECOM MENDA TION FOR DOV STERO L: ADULT CHILD LOW RISK: <200 <170 BORDE RLINE : <200- 239 ----- HIGH RISK: >240 >200 Not Available [facility] (Lab) [address] [place], [address], 02/09/2022 16:57:58 02/10/20 22 02/09/2022 LIPID PANEL triglyceride s 101 mg/dL 0-150 NIH CAROLEE NSUS REPOR T RECOM MENDA TION FOR TRIGL YCERI ASHLIE: ADULT CHILD LOW RISK: <150 ----- BODER LINE: 150-1 99 ----- HIGH RISK: >200 ----- Not Available [facility] (Lab) [address] [place], [address], 02/09/2022 16:57:58 02/10/20 22 02/09/2022 LIPID PANEL HDL cholesterol 84 mg/dL 40- Not Available [facility] (Lab) [address] [place], [address], 02/09/2022 16:57:58 02/10/20 22 02/09/2022 LIPID PANEL LDL cholesterol, calculated 104 mg/dL 0-130 NIH CAROLEE NSUS REPOR T RECOM MENDA TIONS FOR LDL: ADULT CHILD LOW RISK <130 <110 (OPTI MAL LDL) <100 ----- BORDE RLINE : 130-1 59 ----- HIGH RISK: >160 >130 A TRIGL YCERI DE RESUL T >400 INVAL IDATE S THE CALCU LATIO N FOR LDL FRACT IONAT ION - THE LDL RESUL T WILL NOT BE REPOR MARQUES. Not Available [facility] (Lab) [address] [place], [address], 02/09/2022 16:57:58 02/10/20 22 02/09/2022 TSH W/REF CHERELLE FT4 TSH with reflex free T4 2.920 uIU/m L 0.465- 4.680 Not Available [facility] (Lab) [address] [place], [address], 02/09/2022 16:57:42 02/10/20 22 02/09/2022 PSA SCREE N PSA medicare screen 1.98 NG/mL 0.00-4 .00 Not Available [facility] (Lab) [address] [place], [address], 02/09/2022 16:57:23 02/10/20 22 02/09/2022 HEMOG LOBIN A1C HA1C 5.7 % 4.0-6. 0 Diabe roseline Scree adriana Crite audrey: <5.7% Consi stent with absen ce of diabe roseline 5.7-6 .4% Consi stent with incre ased risk for diabe roseline (pred iabet es) >OR=6 .5% Consi stent with diabe roseline REFER ENCE: Diabe roseline Care 2016, 39(Duran ppl.1 ):s13 -s22 Not Available [facility] (Lab) [address] [place], [address], 02/09/2022 16:56:41 02/10/20 22 02/09/2022 COMPR EHENS SOLEDAD METAB OLIC PANEL carbon dioxide 22 mmol/ L 22-30 Not Available [facility] (Lab) [address] [place], [address], 02/09/2022 16:59:10 02/10/20 22 02/09/2022 COMPR EHENS SOLEDAD METAB OLIC PANEL sodium 141 mmol/ L 137-14 5 Not Available [facility] (Lab) [address] [place], [address], 02/09/2022 16:59:10 02/10/20 22 02/09/2022 COMPR EHENS SOLEDAD METAB OLIC PANEL potassium 4.7 mmol/ L 3.5-5. 1 Not Available [facility] (Lab) [address] [place], [address], 02/09/2022 16:59:10 02/10/20 22 02/09/2022 COMPR EHENS SOLEDAD METAB OLIC PANEL chloride 108 mmol/ L 98-107 high Not Available [facility] (Lab) [address] [place], [address], 02/09/2022 16:59:10 02/10/20 22 02/09/2022 COMPR EHENS SOLEDAD METAB OLIC PANEL anion gap 15.7 mmol/ L 14-22 Not Available [facility] (Lab) [address] [place], [address], 02/09/2022 16:59:10 02/10/20 22 02/09/2022 COMPR EHENS SOLEDAD METAB OLIC PANEL glucose 95 mg/dL 70-99 Not Available [facility] (Lab) [address] [place], [address], 02/09/2022 16:59:10 02/10/20 22 02/09/2022 COMPR EHENS SOLEDAD METAB OLIC PANEL BUN 22 mg/dL 8-19 high Not Available [facility] (Lab) [address] [place], [address], 02/09/2022 16:59:10 02/10/20 22 02/09/2022 COMPR EHENS SOLEDAD METAB OLIC PANEL creatinine 1.15 mg/dL 0.66-1 .25 Not Available [facility] (Lab) [address] [place], [address], 02/09/2022 16:59:10 02/10/20 22 02/09/2022 COMPR EHENS SOLEDAD METAB OLIC PANEL GFR >60 Refer ence Range : [place] ge GFR Healt hy Adult : >60 mL/mi n/1.7 3 m2 Chron ic Kidne y Disea se: 15-60 mL/mi n/1.7 3 m2 Kidne y Failu re: <15/m L/min /1.73 m2 www.n iddk. nih.g ov The MDRD study equat ion has not been valid ated in child ovidio <18 years of age; pregn ant women ; the elder ly >85 years of age; or in some racia l or ethni c subgr oups, such as Hispa nics. Outsi de the valid ated miguel eters , estim ated GFR is less accur ate, requi ring clini elizabeth judgm ent on a case- by-ca se basis . Clini elizabeth inter preta tion for other races and ages must be made by the clini andrey. The MDRD study equat ion has not been valid ated for the evalu ation of serum creat inine relat ed to nutri scott l statu s or medic ation usage . For perso ns <18 years of age, a pedia tric GFR calcu lator is avail able on the [facility] websi te: https ://mayra hsu.jesus galvin.o rg/pr ofess ional s/kdo qi/gf r_cal culat or Not Available [facility] (Lab) [address] [place], [address], 02/09/2022 16:59:10 02/10/2002/09/2022 COMPR EHENS SOLEDAD METAB OLIC PANEL alkaline phosphatase 64 U/L 38-126 Not Available [facility] (Lab) [address] [place], [address], 02/09/2022 16:59:10 02/10/20 22 02/09/2022 COMPR EHENS SOLEDAD METAB OLIC PANEL alanine aminotransfe rase 35 U/L 0-50 Not Available [facility] (Lab) [address] [place], [address], 02/09/2022 16:59:10 02/10/20 22 02/09/2022 COMPR EHENS SOLEDAD METAB OLIC PANEL aspartate aminotransfe rase 41 U/L 15-46 Not Available [facility] (Lab) [address] [place], [address], 02/09/2022 16:59:10 02/10/20 22 02/09/2022 COMPR EHENS SOLEDAD METAB OLIC PANEL bilirubin, total 1.20 mg/dL 0.20-1 .30 Not Available [facility] (Lab) [address] [place], [address], 02/09/2022 16:59:10 02/10/20 22 02/09/2022 COMPR EHENS SOLEDAD METAB OLIC PANEL calcium 9.9 mg/dL 8.4-10 .2 Not Available [facility] (Lab) [address] [place], [address], 02/09/2022 16:59:10 02/10/20 22 02/09/2022 COMPR EHENS SOLEDAD METAB OLIC PANEL total protein 8.0 g/dL 6.3-8. 2 Not Available [facility] (Lab) [address] [place], [address], 02/09/2022 16:59:10 02/10/20 22 02/09/2022 COMPR EHENS SOLEDAD METAB OLIC PANEL albumin 4.9 g/dL 3.4-5. 0 Not Available [facility] (Lab) [address] [place], [address], 02/09/2022 16:59:10 02/10/20 22 02/09/2022 COMPR EHENS SOLEDAD METAB OLIC PANEL globulin 3.1 g/dL 2.6-4. 2 Not Available [facility] (Lab) [address] [place], [address], 02/09/2022 16:59:10 02/10/20 22 02/09/2022 COMPR EHENS SOLEDAD METAB OLIC PANEL A/G ratio 1.6 ratio 1.0-2. 0 Not Available [facility] (Lab) [address] [place], [address], 02/09/2022 16:59:10 02/10/20 22 02/09/2022 VITAM IN D 25-HY DROXY [id number] 25.2 NG/mL 30-100 low Vitam in D Statu s: Defic ient: <20 ng/mL Insuf ficie nt: 20-29 ng/mL Suffi cient : 30-10 0 ng/mL Not Available [facility] (Lab) [address] [place], [address], 02/09/2022 16:56:31 02/10/20 22 02/09/2022 PSA, TOTAL PSA, total 1.98 NG/mL 0.00-4 .00 Not Available [facility] (Lab) [address] [place], [address], 02/09/2022 15:26:13 02/10/20 22 02/09/2022 CBC/C OMPLE TE BLD COUNT W/DIF F mean red cell hemoglobin 35.4 pg 27.0-3 3.0 high Not Available [facility] (Lab) [address] [place], [address], 02/09/2022 14:48:40 02/10/20 22 02/09/2022 CBC/C OMPLE TE BLD COUNT W/DIF F white blood cells 6.8 x10'3 /uL 4.2-10 .8 Not Available [facility] (Lab) [address] [place], [address], 02/09/2022 14:48:40 02/10/20 22 02/09/2022 CBC/C OMPLE TE BLD COUNT W/DIF F red blood cells 4.24 x10'6 /uL 4.10-5 .80 Not Available [facility] (Lab) [address] [place], [address], 02/09/2022 14:48:40 02/10/20 22 02/09/2022 CBC/C OMPLE TE BLD COUNT W/DIF F hemoglobin 15.0 g/dL 13.2-1 7.0 Not Available [facility] (Lab) [address] [place], [address], 02/09/2022 14:48:40 02/10/20 22 02/09/2022 CBC/C OMPLE TE BLD COUNT W/DIF F hematocrit 46.0 % 39.3-5 0.0 Not Available [facility] (Lab) [address] [place], [address], 02/09/2022 14:48:40 02/10/20 22 02/09/2022 CBC/C OMPLE TE BLD COUNT W/DIF F mean red cell volume 108.5 fL 80.0-9 7.0 high Not Available [facility] (Lab) [address] [place], [address], 02/09/2022 14:48:40 02/10/20 22 02/09/2022 CBC/C OMPLE TE BLD COUNT W/DIF F mean RBC HGB concentratio n 32.6 g/dL 31.0-3 6.0 Not Available [facility] (Lab) [address] [place], [address], 02/09/2022 14:48:40 02/10/20 22 02/09/2022 CBC/C OMPLE TE BLD COUNT W/DIF F red cell distribution width 13.8 % 11.8-1 5.5 Not Available [facility] (Lab) [address] [place], [address], 02/09/2022 14:48:40 02/10/20 22 02/09/2022 CBC/C OMPLE TE BLD COUNT W/DIF F platelets 259 x10'3 /uL 150-40 0 Not Available [facility] (Lab) [address] [place], [address], 02/09/2022 14:48:40 02/10/20 22 02/09/2022 CBC/C OMPLE TE BLD COUNT W/DIF F mean platelet volume 9.8 fL 9.0-12 .4 Not Available [facility] (Lab) [address] [place], [address], 02/09/2022 14:48:40 02/10/20 22 02/09/2022 CBC/C OMPLE TE BLD COUNT W/DIF F neutrophils 46.1 % 39.0-7 2.0 Not Available [facility] (Lab) [address] [place], [address], 02/09/2022 14:48:40 02/10/20 22 02/09/2022 CBC/C OMPLE TE BLD COUNT W/DIF F lymphocytes 38.9 % 16.0-4 7.0 Not Available [facility] (Lab) [address] [place], [address], 02/09/2022 14:48:40 02/10/20 22 02/09/2022 CBC/C OMPLE TE BLD COUNT W/DIF F monocytes 10.7 % 5.0-12 .0 Not Available [facility] (Lab) [address] [place], [address], 02/09/2022 14:48:40 02/10/20 22 02/09/2022 CBC/C OMPLE TE BLD COUNT W/DIF F eosinophils 3.2 % 1.0-7. 0 Not Available [facility] (Lab) [address] [place], [address], 02/09/2022 14:48:40 02/10/20 22 02/09/2022 CBC/C OMPLE TE BLD COUNT W/DIF F basophils 0.7 % 0.0-2. 0 Not Available [facility] (Lab) [address] [place], [address], 02/09/2022 14:48:40 02/10/20 22 02/09/2022 CBC/C OMPLE TE BLD COUNT W/DIF F immature granulocytes 0.4 % 0.00-0 .50 Not Available [facility] (Lab) [address] [place], [address], 02/09/2022 14:48:40 02/10/20 22 02/09/2022 CBC/C OMPLE TE BLD COUNT W/DIF F neutrophils, absolute count 3.14 x10'3 /uL 1.5-8. 0 Not Available [facility] (Lab) [address] [place], [address], 02/09/2022 14:48:40 02/10/20 22 02/09/2022 CBC/C OMPLE TE BLD COUNT W/DIF F lymphocytes, absolute count 2.66 x10'3 /uL 1.07-3 .43 Not Available [facility] (Lab) [address] [place], [address], 02/09/2022 14:48:40 02/10/20 22 02/09/2022 CBC/C OMPLE TE BLD COUNT W/DIF F monocytes, absolute count 0.73 x10'3 /uL 0.29-0 .99 Not Available [facility] (Lab) [address] [place], [address], 02/09/2022 14:48:40 02/10/20 22 02/09/2022 CBC/C OMPLE TE BLD COUNT W/DIF F eosinophils, absolute count 0.22 x10'3 /uL 0.02-0 .53 Not Available [facility] (Lab) [address] [place], [address], 02/09/2022 14:48:40 02/10/20 22 02/09/2022 CBC/C OMPLE TE BLD COUNT W/DIF F basophils, absolute count 0.05 x10'3 /uL 0.01-0 .08 Not Available [facility] (Lab) [address] [place], [address], 02/09/2022 14:48:40 02/10/20 22 02/09/2022 CBC/C OMPLE TE BLD COUNT W/DIF F immature granulocytes ,absolute 0.03 x10'3 /uL 0.00-0 .05 Not Available [facility] (Lab) [address] [place], [address], 02/09/2022 14:48:40 02/10/20 22 02/09/2022 CBC/C OMPLE TE BLD COUNT W/DIF F nucleated red blood cells 0.0 % -0 Not Available [facility] (Lab) [address] [place], [address], 02/09/2022 14:48:40 02/10/20 22 02/09/2022 CBC/C OMPLE TE BLD COUNT W/DIF F NRBC# 0.00 x10'3 /uL Not Available [facility] (Lab) [address] [place], [address], 02/09/2022 14:48:40 02/10/20 22 02/09/2022 CBC/C OMPLE TE BLD COUNT W/DIF F macro 1+ Not Available [facility] (Lab) [address] [place], [address], 02/09/2022 14:48:40 02/10/20 22 02/10/2022 TEST NOT PERFO RMED tnp see commen t PATIE NT UNABL E TO PROVI DE URINE SPECI MEN Not Available [facility] (Lab) [address] [place], [address], 02/10/2022 14:13:40 02/10/20 22 02/09/2022 HEMOG LOBIN A1C HA1C 5.7 % 4.0-6. 0 Diabe roseline Scree adriana Crite audrey: <5.7% Consi stent with absen ce of diabe roseline 5.7-6 .4% Consi stent with incre ased risk for diabe roseline (pred iabet es) >OR=6 .5% Consi stent with diabe roseline REFER ENCE: Diabe roseline Care 2016, 39(Duran ppl.1 ):s13 -s22 Not Available [facility] (Lab) [address] [place], [address], 02/09/2022 16:10:41 02/10/20 22 02/09/2022 TSH thyroid-stim ulating hormone 2.920 uIU/m L 0.465- 4.680 Not Available [facility] (Lab) [address] [place], [address], 02/09/2022 15:26:11 02/10/20 22 02/09/2022 VITAM IN D 25-HY DROXY [id number] 25.2 NG/mL 30-100 low Vitam in D Statu s: Defic ient: <20 ng/mL Insuf ficie nt: 20-29 ng/mL Suffi cient : 30-10 0 ng/mL Not Available [facility] (Lab) [address] [place], [address], 02/09/2022 15:07:22 02/10/20 22 02/09/2022 LIPID PANEL cholesterol 208 mg/dL 140-19 9 high NIH CAROLEE NSUS RECOM MENDA TION FOR DOV STERO L: ADULT CHILD LOW RISK: <200 <170 BORDE RLINE : <200- 239 ----- HIGH RISK: >240 >200 Not Available [facility] (Lab) [address] [place], [address], 02/09/2022 14:59:20 02/10/20 22 02/09/2022 LIPID PANEL triglyceride s 101 mg/dL 0-150 NIH CAROLEE NSUS REPOR T RECOM MENDA TION FOR TRIGL YCERI ASHLIE: ADULT CHILD LOW RISK: <150 ----- BODER LINE: 150-1 99 ----- HIGH RISK: >200 ----- Not Available [facility] (Lab) [address] [place], [address], 02/09/2022 14:59:20 02/10/20 22 02/09/2022 LIPID PANEL HDL cholesterol 84 mg/dL 40- Not Available [facility] (Lab) [address] [place], [address], 02/09/2022 14:59:20 02/10/20 22 02/09/2022 LIPID PANEL LDL cholesterol, calculated 104 mg/dL 0-130 NIH CAROLEE NSUS REPOR T RECOM MENDA TIONS FOR LDL: ADULT CHILD LOW RISK <130 <110 (OPTI MAL LDL) <100 ----- BORDE RLINE : 130-1 59 ----- HIGH RISK: >160 >130 A TRIGL YCERI DE RESUL T >400 INVAL IDATE S THE CALCU LATIO N FOR LDL FRACT IONAT ION - THE LDL RESUL T WILL NOT BE REPOR MARQUES. Not Available [facility] (Lab) [address] [place], [address], 02/09/2022 14:59:20 02/22/20 22 02/22/2022 URINA LYSIS COMPL ETE/I RIS W/RFX color yellow Not Available [facility] (Lab) [address] [place], [address], 02/22/2022 14:40:16 02/22/20 22 02/22/2022 URINA LYSIS COMPL ETE/I RIS W/RFX appear clear Not Available [facility] (Lab) [address] [place], [address], 02/22/2022 14:40:16 02/22/20 22 02/22/2022 URINA LYSIS COMPL ETE/I RIS W/RFX specific gravity 1.022 1.001- 1.030 Not Available [facility] (Lab) [address] [place], [address], 02/22/2022 14:40:16 02/22/20 22 02/22/2022 URINA LYSIS COMPL ETE/I RIS W/RFX pH 6.5 pH_un its 5.0-9. 0 Not Available [facility] (Lab) [address] [place], [address], 02/22/2022 14:40:16 02/22/20 22 02/22/2022 URINA LYSIS COMPL ETE/I RIS W/RFX leukocytes negati ve araceli/u L negati ve- Not Available [facility] (Lab) [address] [place], [address], 02/22/2022 14:40:16 02/22/20 22 02/22/2022 URINA LYSIS COMPL ETE/I RIS W/RFX nitrite negati ve negati ve- Not Available [facility] (Lab) [address] [place], [address], 02/22/2022 14:40:16 02/22/20 22 02/22/2022 URINA LYSIS COMPL ETE/I RIS W/RFX protein negati ve mg/dL negati ve- Not Available [facility] (Lab) [address] [facility] [place], [address], 02/22/2022 14:40:16 02/22/20 22 02/22/2022 URINA LYSIS COMPL ETE/I RIS W/RFX glucose normal mg/dL normal - Not Available [facility] (Lab) [address] [place], [address], 02/22/2022 14:40:16 02/22/20 22 02/22/2022 URINA LYSIS COMPL ETE/I RIS W/RFX blood negati ve mg/dL negati ve- Not Available [facility] (Lab) [address] [place], [address], 02/22/2022 14:40:16 02/22/20 22 02/22/2022 URINA LYSIS COMPL ETE/I RIS W/RFX ketones negati ve mg/dL negati ve- Not Available [facility] (Lab) [address] [place], [address], 02/22/2022 14:40:16 02/22/20 22 02/22/2022 URINA LYSIS COMPL ETE/I RIS W/RFX urobilinogen 2 mg/dL normal - abnormal Not Available [facility] (Lab) [address] [place], [address], 02/22/2022 14:40:16 02/22/20 22 02/22/2022 URINA LYSIS COMPL ETE/I RIS W/RFX bilirubin negati ve mg/dL negati ve- Not Available [facility] (Lab) [address] [place], [address], 02/22/2022 14:40:16 02/22/20 22 02/22/2022 URINA LYSIS COMPL ETE/I RIS W/RFX white blood cells 0-8 /i??h pfi?? 0-8 Not Available [facility] (Lab) [address] [place], [address], 02/22/2022 14:40:16 02/22/20 22 02/22/2022 URINA LYSIS COMPL ETE/I RIS W/RFX red blood cells 0-4 /i??h pfi?? 0-4 Not Available [facility] (Lab) [address] [place], [address], 02/22/2022 14:40:16 02/22/20 22 02/22/2022 URINA LYSIS COMPL ETE/I RIS W/RFX bacteria none Not Available [facility] (Lab) [address] [place], [address], 02/22/2022 14:40:16 02/22/20 22 02/22/2022 URINA LYSIS COMPL ETE/I RIS W/RFX mucous occasi onal /i??l pfi?? abnormal Not Available [facility] (Lab) [address] [place], [address], 02/22/2022 14:40:16 02/22/20 22 02/22/2022 URINA LYSIS COMPL ETE/I RIS W/RFX squamous epithelial many /i??l pfi?? abnormal Not Available [facility] (Lab) [address] [place], [address], 02/22/2022 14:40:16 02/22/20 22 02/22/2022 URINA LYSIS COMPL ETE/I RIS W/RFX hyaline cast occasi onal /i??l pfi?? none seen- abnormal Not Available [facility] (Lab) [address] [place], [address], 02/22/2022 14:40:16 02/27/20 22 02/26/2022 COLOG UARD cologuard result reportable negati ve negati ve NEGAT SOLEDAD TEST RESUL T. A negat soledad Colog uard resul t indic ates a low likel ihood that a color ectal cance r (CRC) or advan mat adeno ma (sandro omato us polyp s with more advan mat pre-m align ant featu res) is prese nt. The chanc e that a perso n with a negat soledad Colog uard test has a color ectal cance r is less than 1 in 1500 (nega tive predi ctive value >99.9 %) or has an advan mat adeno ma is less than 5.3% (nega tive predi ctive value 94.7% ). These data are based on a prosp ectiv e cross -sect ional study of 10,00 0 ind[facility]ual s at [facility] risk for color ectal cance r who were scree tawanna with both Colog uard and colon oscop y. (Charisse Wade et al, N Engl J Med 2014; 370(1 4):12 86-12 97) The padma l value (refe rence range ) for this assay is negat soledad. COLOG UARD RE-SC REENI NG RECOM MENDA TION: Perio dic color ectal cance r scree adriana is an impor tant part of preve ntive healt hcare for asymp tomat ic indiv idual s at [place] risk for color ectal cance r. Follo wing a negat soledad Colog uard resul t, the Ameri can Cance r Socie ty and U.S. Multi -Soci ety Task Force scree adriana guide lines recom mend a Colog uard re-sc reeni ng inter brett of 3 years . Refer ences : Ameri can Cance r Socie ty Guide line for Color ectal Cance r Scree adriana: https ://mayra w.can cer.o rg/ca ncer/ colon -rect al-ca ncer/ detec tion- diagn osis- stagi ng/ac s-rec ommen datio ns.ht ml.; Darrel RILEY, Donta santo CR, Lonnie ARNOLD, Color ectal Cance r Scree adriana: Recom menda tions for Physi cians and Patie nts from the U.S. Multi -Soci ety Task Force on Color ectal Cance r Scree adriana , Am Noreen Gastr oente rolog y 2017; 112:1 016-1 030. TEST DESCR IPTIO N: [place] site algor ithmi c henny sis of stool DNA-b iomar kers with hemog lobin immun oassa y. Quant itati ve value s of indiv idual bioma rkers are not repor table and are not assoc iated with indiv idual bioma rker resul t refer ence range s. Colog uard is inten ded for color ectal cance r scree adriana of adult s of eithe r sex, 45 years or older , who are at [facility] for color ectal cance r (CRC) . Colog uard has been appro paige for use by the U.S. FDA. The perfo rmanc e of Colog uard was estab lishe d in a cross secti onal study of [facility] adult s aged 50-84 . Colog uard perfo rmanc e in patie nts ages 45 to 49 years was estim ated by sub-g izzyp henny sis of near- age group s. Colon oscop ies perfo rmed for a posit soledad resul t may find as the most clini buddy signi raúl t yves n: color ectal cance r [4.0% ], advan mat adeno ma (incl uding sessi le freddy marques polyp s great er than or equal to 1cm diame ter) [20%] or non- advan mat adeno ma [31%] ; or no color ectal neopl kervin [45%] . These estim ates are deriv ed from a prosp ectiv e cross -sect ional scree adriana study of 0 indiv idual s at [facility] risk for color ectal cance r who were scree tawanan with both Colog uard and colon oscop y. (Charisse Moss al, N Engl J Med 2014; 370(1 4):12 86-12 97.) Colog uard may produ ce a false negat soledad or false posit soledad resul t (no color ectal cance r or preca ncero us polyp prese nt at colon oscop y follo w up). A negat soledad Colog uard test resul t does not guara ntee the absen ce of CRC or advan mat adeno ma (pre- cance r). The curre nt Colog uard scree adriana inter brett is every 3 years . (Amer ican Cance r Socie ty and U.S. Multi -Soci ety Task Force ). Colog uard perfo rmanc e data in a 0 patie nt pivot al study using colon oscop y as the refer ence metho d can be acces sed at the follo wing locat ion: www.e xactl abs.c om/re erlinda . Addit ional descr iptio n of the Colog uard test proce ss, warni ngs and preca ution s can be found at www.c lilliana jose a.c om. Not Available [employer] (Cologuard Orders Only) [address], [place], [address], 03/01/2022 01:44:32 Result Notes None recorded. Problems Name Problem SNOMED Code Status Onset Date Resolution Date Notes Provider Name and Address Organization Details Recorded Time Pain in upper limb 143549635 Completed Not Available [facility] 3 08:09:15 Abdominal bloating 511381410 Active 2020 Not Available [facility] 3 08:09:15 Excessive cerumen in ear canal 062021558 Completed Not Available [facility] 3 08:09:15 Computed tomograph y result abnormal 703936752 Active 2021 Not Available [facility] 3 08:09:15 History of pneumonia 443471618 Active 2021 Not Available [facility] 3 08:09:15 Lateral epicondyl itis 399585540 Completed Not Available [facility] 3 08:09:16 Mass of right lower lobe of lung Active 2020 Not Available [facility] 3 08:09:16 Overweigh t 020860215 Active 2021 Not Available [facility] 3 08:09:16 Difficult y gripping 493622391 Completed Not Available [facility] 3 08:09:16 Vitamin D deficienc y 58821178 Active 2021 Not Available [facility] 3 08:09:16 Hypertens soledad disorder 46246604 Active 2021 Not Available [facility] 3 08:09:16 Unintenti onal weight loss 190218625 Active 2020 Not Available [facility] 3 08:09:16 Hyperlipi demia 46257463 Active 2021 Not Available [facility] 3 08:09:16 Posterior rhinorrhe a 47124524 Completed Not Available [facility] 3 08:09:16 Injury of head 06011789 Active 2022 Nathaniel Pratt MD [address], [place], [address] , [employer] 3 15:43:35 Contusion of head 461478910 Active 2022 Nathaniel Pratt MD [address], [place], [address] , [facility] 3 15:51:46 Pain in right hip joint 73033477403 9102 Active 2023 Nathaniel Pratt MD [address], [place], [address] , [employer] 4 16:24:37 Osteoarth ritis of hip 297973689 Active 2023 Nathaniel Pratt MD [address], [place], [address] , [employer] 4 16:24:46 Ex-cigare tte smoker 162416709 Active 2023 Nathaniel Pratt MD [address], [place], [address] , [employer] 4 16:25:40 History of pleural effusion 510143601 Active 2023 Nathaniel Pratt MD [address], [place], [address] , [employer] 4 16:44:14 Problem Notes None recorded. Procedures Surgical History Date Name Laterality Status Provider Name and Address Organization Details Recorded Time 9 Carpal tunnel surgery completed Not Available [facility] 08/15/2022 08:06:15 Hernia Repair completed Not Available [facility] 08/15/2022 08:06:15 Imaging Results None recorded. Procedure Notes None recorded. Medical Equipment None Reported. Allergies No known drug allergies Medications Name Sig Start Date Stop Date Status Note LastModified by Organization Details LastModified Time prednisone 10 mg tablet 01/24 completed Not Available Not Available Not Available meloxicam 15 mg tablet TK 1 T PO QAM WF 01/09 completed Not Available Not Available Not Available lisinopril 20 mg tablet TAKE 1 TABLET BY MOUTH EVERY DAY IN THE MORNING 2022 active Not Available Not Available Not Avai lable prednisone 10 mg tablets in a dose pack Take 1 tab by mouth, 3 times a day for 3 daysTake 1 tab by mouth 2 times a day for 2 daysTake 1 tab by mouth once a day for 1 day 01/24 completed Not Available Not Available Not Available famotidine 20 mg tablet Take 1 tablet twice a day by oral route as directed for 30 days. 01/09 completed Not Available Not Available Not Available lisinopril 10 mg tablet TAKE 1 TABLET BY MOUTH EVERY DAY IN THE MORNING 08/16 completed Not Available Not Available Not Available lisinopril 30 mg tablet TAKE 1 TABLET BY MOUTH EVERY DAY DIRECTED 04/30 completed Not Available Not Available Not Available diclofenac sodium 75 mg tablet,kvng yed release TAKE 1 TABLET BY MOUTH TWICE DAILY active Not Available Not Available No t Available ergocalcife rol (vitamin D2) 1,250 mcg (50,000 unit) capsule TAKE 1 CAPSULE BY MOUTH EVERY WEEK DIRECTED active Not Available Not Available No t Available amoxicillin 875 mg-potassiu m clavulanate 125 mg tablet TAKE 1 TABLET BY MOUTH EVERY 12 HOURS FOR 10 DAYS 01/09 completed Not Available Not Available Not Available Fluvirin 1884-2926 45 mcg (15 mcg x 3)/0.5 mL intramuscul ar suspension INJECT 0.5 ML INTRAMUSC ULARLY DIRECTED. 08/06 completed Not Available Not Available Not Available Vitals Date Recorded Body mass index (BMI) Body height Oxygen saturation Oxygen saturation in Arterial blood by Pulse oximetry Heart rate Respiratory rate Body temperature Body weight Systolic blood pressure Diastolic blood pressure Provider Name and Address Organization Details Last Updated DateTime 2 27.9 kg/m2 182.88 cm 99 % 99 % 84 /min 18 /min 98.8 [degF] 47938.0 3 g 132 mm[Hg] 80 mm[Hg] Not Available [facility] 3 08:07:03 Date Recorded Body mass index (BMI) Body height Oxygen saturation Oxygen saturation in Arterial blood by Pulse oximetry Heart rate Respiratory rate Body temperature Body weight Systolic blood pressure Diastolic blood pressure Provider Name and Address Organization Details Last Updated DateTime 2 28.2 kg/m2 182.88 cm 98 % 98 % 66 /min 16 /min 97.4 [degF] 26428.2 1 g 168 mm[Hg] 82 mm[Hg] Not Available [facility] 3 08:07:03 Date Recorded Body height Body mass index (BMI) Body weight Body temperature Heart rate Oxygen saturation Oxygen saturation in Arterial blood by Pulse oximetry Respiratory rate Systolic blood pressure Diastolic blood pressure Provider Name and Address Organization Details Last Updated DateTime 3 182.88 cm 28.1 kg/m2 60133.6 2 g 98.2 [degF] 68 /min 98 % 98 % 16 /min 146 mm[Hg] 86 mm[Hg] Malia Henry RN [facility] [employer] [facility] 3 15:31:14 Date Recorded Body weight Body mass index (BMI) Body height Body temperature Heart rate Oxygen saturation Oxygen saturation in Arterial blood by Pulse oximetry Systolic blood pressure Diastolic blood pressure Provider Name and Address Organization Details Last Updated DateTime 4 05690.7 6 g 27.1 kg/m2 182.88 cm 97.2 [degF] 65 /min 97 % 97 % 146 mm[Hg] 92 mm[Hg] Brooklynn Muñiz RN [facility] [employer] [facility] 4 16:15:55 Social History Question Answer Notes LastModified by Organizat ion Details LastModified Time Tobacco Smoking Status Former Smoker pt quit smoking about a year ago Brooklynn Muñiz RN [facility], [facility] [employer] [facility] 04/30/2024 16:13:44 Do You Have An Advance Directive? No MIGRATION.[id number] Information not available 08/15/2022 What Is Your Level Of Alcohol Consumption? Occasional MIGRATION.[id number] Information not available 08/15/2022 Do You Wear A Helmet When Biking? No MIGRATION.01752 62890 Information not available 08/15/2022 What Is Your Level Of Caffeine Consumption? None MIGRATION.99712 22087 Information not available 08/15/2022 In The 14 Days Before Symptom Onset, Have You Had Close Contact With A Laboratory-confir med COVID-19 While That Case Was Ill? No MIGRATION.75668 84592 Information not available 08/15/2022 In The 14 Days Before Symptom Onset, Have You Had Close Contact With A Person Who Is Under Investigation For COVID-19 While That Person Was Ill? No MIGRATION.62485 [id number] Information not available 08/15/2022 What Type Of Diet Are You Following? REGULAR MIGRATION.36605 33495 Information not available 08/15/2022 What Is The Highest Grade Or Level Of School You Have Completed Or The Highest Degree You Have Received? 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 No MIGRATION.04300 29572 Information not available 08/15/2022 Do You Use Insect Repellent Routinely? No MIGRATION.33519 41239 Information not available 08/15/2022 Do You Have A Medical Power Of Motor Vehicle Technician? No MIGRATION.73209 76969 Information not available 08/15/2022 Do You Have Any Pets? No MIGRATION.02959 75607 Information not available 08/15/2022 What Is Your Relationship Status? MIGRATION.69818 02442 Information not available 08/15/2022 Do You Use Your Seat Belt Or Car Seat Routinely? Yes MIGRATION.42966 97239 Information not available 08/15/2022 Do You Have Smoke And Carbon Monoxide Detectors In Your Home? Yes MIGRATION.00948 48201 Information not available 08/15/2022 Are You Passively Exposed To Smoke? Yes MIGRATION.77533 00358 Information not available 08/15/2022 Are There Any Smokers In Your House? Yes MIGRATION.10539 86769 Information not available 08/15/2022 How Much Tobacco Do You Smoke? 1 PPD MIGRATION.89839 57358 Information not available 08/15/2022 Do You Use Any Illicit Or Recreational Drugs? No MIGRATION.20314 32651 Information not available 08/15/2022 Do You Use Sunscreen Routinely? No MIGRATION.28170 92261 Information not available 08/15/2022 How Many Years Have You Smoked Tobacco? 45 MIGRATION.88759 38998 Information not available 08/15/2022 Have You Recently Traveled Abroad? No MIGRATION.01834 01923 Information not available 08/15/2022 Are You Currently In School? No MIGRATION.72278 69360 Information not available 08/15/2022 Do You Have Any Dietary Restrictions? No MIGRATION.36237 94724 Information not available 08/15/2022 Sex: Male Functional Status Question Answer Note LastModified by Organizat ion Details LastModified Time What is your exercise level? Heavy MIGRATION.[id number] Information not available 08/15/2022 Mental Status None recorded. Family History Relationship Description Onset Age of this Age Resolved Age Notes LastModified by Organization Details LastModified Time Father No current problems or disability [id number] Not available 08/15/2022 08:06:16 Mother No current problems or disability MIGRATION.[id number] Not available 08/15/2022 08:06:16 Medical History No medical history recorded. Immunizations Vaccine Type Date Status Note Provider Nam e and Address Organization Details Recorded Time Influenza, split virus, trivalent, preservative 4 completed Not Available [facility] 08/15/2022 08:13:03 Tdap 2 completed Not Available [facility] 08/15/2022 08:13:03 Past Encounters Encounter ID Performer Location Encounter Start Date Encounter Closed Date Diagnosis/Indication Diagnosis SNOMED-CT Code Diagnosis ICD10 Code Diagnosis Note [id number] [facility] [address] [place] [address] 01/09/2021 00:00:00 01/09/2021 15:36:50 [id number] [facility] [place] [address] [place] [address] 01/19/2021 00:00:00 01/19/2021 13:53:24 [id number] [facility] [address] [place] [address] 01/24/2021 00:00:00 01/25/2021 09:45:36 [id number] [facility] [address] [place] [address] 01/09/2022 00:00:00 01/09/2022 17:31:58 [id number] [facility] [address] [place] [address] 01/19/2022 00:00:00 01/19/2022 15:44:[id number] [facility] [address] [place] [address] 01/23/2022 00:00:00 01/23/2022 16:58:[id number] [facility] [address] [place] [address] 02/06/2022 00:00:00 02/06/2022 16:58:[id number] [facility] [address] [place] [address] 02/09/2022 00:00:00 02/09/2022 14:55:[id number] [facility] [address] [place] [address] 02/21/2022 00:00:00 02/21/2022 17:11:[id number] [facility] [address] [place] [address] 04/25/2022 00:00:00 04/25/2022 16:22:12 [id number] [facility] [address] [place] [address] 08/16/2022 15:12:01 08/16/2022 15:54:31 Injury of head 92650718 S09.90XA Hypertensive disorder 38 789744 I10 Hyperlipidemia 38498143 E78.5 Contusion of head 265219 009 S00.93XA occipital [id number] Nathaniel Pratt MD [facility] [address] [place] [address] 04/30/2024 16:06:52 04/30/2024 16:51:49 Pre-surgery evaluation 043239789 Z01.818 Pain in ri ght hip joint 7685301618 66773 M25.551 Osteoarthritis of hip 23 8755554 M16.9 Hypertensive disorder 38 685374 I10 Hyperlipidemia 91522538 E78.5 Ex-cigarette smoker 2810 84006 Z87.891 05/08 Influenza vaccination declined 591182882 Z28.21 History of pleural effusion 487900141 Z87.09 Health Concerns Section Related Observation LastModified by Organization Detai ls LastModified Time None Recorded Concern Status LastModified by Organization Details LastModified Time None Recorded Advance Directives Directive N: Payers Encounter Date Sequence Insurance Name Policy Number Policy De Dios Covered Member ID De Dios Member ID Guarantor Name 08/16/2022 1 [facility] [id number] Jerson Ellington [id number] Jerson Ellington 08/16/2022 2 [employer] Jerson Ellington [id number] Jerson Ellington 04/30/2024 1 [facility] [id number] Jerson Ellington [id number] Jerson Ellington 04/30/2024 2 [employer] Jerson Ellington [id number] Jerosn Ellington Notes Date Note Type Note Provider Name and Address Organization Details Recorded Time 08/16/2022 text/html ACV: S/p fall at home. Pt was walking and he accidentally tripped over a box of albums and hit the back of his head. Happened 2 days ago. No LOC at that time. He had mild pain over the area for 1 day and no more pain since than. Denies any other symptoms. No vision changes/diplopia/n /v/headache/weakne ss/fatigue/dizzine ss. Good PO intake ++, walking fine without any issues. Pt needs RTW note due to this incident. Pt is checking his BP at home and its still in 130s-140s range, bottom number is below 80 as per pt. Pt has not gone for any repeat labs and doesn't want to do any until his next annual in 02/06 (due to cost issues). Nathaniel Pratt MD [address] [place] [address], [facility] [address], [place], [address], [facility] 08/16/2022 15:53:42 04/30/2024 text/html Pre-op visit: Pt is f/u with Ortho at [place] for his chronic Rt hip pain and he will be going with them for THR next month. So pt needs Pre-op clearance. Besides his hip pain, he is doing overall well. Denies any other concern. Pt says they will be doing all testing for his surgery few weeks before it. So he doesn't need anything ordered from me for it. Pt is f/u with Pulmo at [place] for his chronic pleural effusion. He is not on any meds by them. Pt is checking his BP at home and its good. No concern with it. Last visit in 05/08. Nathaniel Pratt MD [address] [place] [address], [address], [facility] [employer] 04/30/2024 16:45:26
--- OUTSIDE RECORDS SUMMARY | 2024-07-09 21:01 | XMS_ITS | Referral Summary ---
Author Organization [facility] Address [address] [place] [address] Care Team Providers Care Prep Manager Name Role Phone Nathaniel Pratt MD Primary Care Provider [phone] Allergies No known active allergies Medications amoxicillin-cla [...] and are negative. 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
== END 2024-07-09 10:15 | disposition home or self-care (01) ==
LOC: ANHSURGERY 06:03 → ANH3MEDSUR 14:34
PROVIDERS: PCP Family Medicine; Visit Provider Orthopaedic Surgery
PROC: (CPT 27130; principal; 2024-07-08 07:30)
DX: M16.11 Unilateral primary osteoarthritis, right hip (principal); I10 Essential (primary) hypertension; Z87.891 Personal history of nicotine dependence
CPT/HCPCS: 27130; 36415; 80048; 85025; 97110; 97116; 97161; 97165; 97530; 97535; 99199; A9270; C1776; J0690; J1100; J1171; J1596; J2003; J2250; J2371; J2405; J2704; J3010; J3370; J7030; J7120